=== PATIENT | male | born 1945 | race Caucasian/White ===

== ENCOUNTER 2017-02-06 09:48 | Day surgery (SDC) | payer OTHER ==
[~2017-02-06] VITALS: Ht 175.3 cm; Wt 92.9 kg
[~2017-02-06 09:48] MED LIST: BLOOD PRESSURE MEDS; DIABETES MEDS
[2017-02-06] MEDS ORDERED: PROPOFOL 40 ML ONE (11:15)
[2017-02-06] MEDS ORDERED: PROPOFOL 20 ML ONE (12:06)
--- NOTE | 2017-02-06 12:08 | OPPN ---
Date/Time of Note Date/Time of Note DATE: 02/06/17 TIME: 12:06 Operative Report Preoperative Diagnosis Screening History of colon polyps Postoperative Diagnosis Sigmoid tumor at 50 centimeters from the anus Internal hemorrhoids Operation/Procedure Performed Colonoscopy and biopsy Tattooing of the tumor site with Ayla ink Provider: EARLINE VALENZUELA MD Anesthesia Type: MAC Estimated blood loss: none Transfusion Required: no Specimens Biopsy sigmoid tumor Grafts/Implants: none Complications: no EARLINE VALENZUELA MD Feb 06, 2017 12:08
[2017-02-06 12:20] VITALS: BP 144/70; RESP 14
--- NOTE | 2017-02-06 13:33 | GILP ---
DATE OF PROCEDURE: 02/06/2017 SURGEON: Drake Eugene MD. PROCEDURE PERFORMED: Colonoscopy and biopsy. PREOPERATIVE DIAGNOSES: 1. Screening colonoscopy. 2. History of colon polyps. POSTOPERATIVE DIAGNOSES: 1. Colonoscopy all the way to the cecum. 2. Poor prep, making the exam somewhat suboptimal. 3. Sigmoid mass at 50 cm from the anus, and biopsies were taken for histopathology. 4. The area was tattooed with Ayla ink. 5. Internal hemorrhoids. INDICATION: Mr. Fredy Angel is a 71-year-old male patient who had a history of colon polyps. The patient was scheduled for screening colonoscopy. The procedure and possible complications were well explained to the patient and the family and consent was obtained. DESCRIPTION OF PROCEDURE: Under influence of anesthesia, the colonoscope was carefully introduced in the rectum. Under direct vision, it was advanced all the way to the cecum. Findings, the patient had a sigmoid tumor at 50 cm from the anus, and multiple biopsies were taken for histopathology. The area was tattooed with Ayla ink. The patient was noted to have internal hemorrhoids. He tolerated the procedure very well. There was no complication from the procedure. At the end of procedure, he was awake with stable vital signs and he was discharged home in the care of his family. IMPRESSION: 1. Colonoscopy all the way to the cecum. 2. Poor prep, making the exam somewhat suboptimal. 3. Sigmoid tumor at 50 cm from the anus, and biopsies were taken for histopathology. 4. The area was tattooed with Ayla ink. 5. Internal hemorrhoids. PLAN: Await histopathology report. The patient will need surgical evaluation. Dictated By: MD TANNER Medley/pastor/lyndsay /Document#: [id number]
== END 2017-02-06 12:47 | disposition home or self-care (01) ==
LOC: GIL 09:48
PROVIDERS: ATTEND Internal Medicine Gastroenterology
DX: Z12.11 Encounter for screening for malignant neoplasm of colon (principal); C18.7 Malignant neoplasm of sigmoid colon; K64.8 Other hemorrhoids; E78.5 Hyperlipidemia, unspecified; E11.9 Type 2 diabetes mellitus without complications
CPT/HCPCS: 82962; 88305

== ENCOUNTER 2017-03-30 08:52 | Inpatient (IN) | payer OTHER ==
[2017-03-30] VITALS (20 sets, daily range): BP systolic 126–185; BP diastolic 60–87; PULSE 66–97; RESP 10–20; Ht 175.3 cm; Wt 94.4 kg
[~2017-03-30] VITALS: Ht 175.3 cm; Wt 94.4 kg
[~2017-03-30 08:52] MED LIST changes: +CEFAZOLIN 1 GM INJ ONE; +METOPROLOL 5 MG INJ ONE; +ROCURONIUM 50 MG INJ ONE; +metroNIDAZOLE 500 MG/100 ML NS IVPB ONE
[2017-03-30] MEDS ORDERED: AMPICILLIN/SULB 3 GM/NS (PMX) 100 ML IVPB ONE (09:30)
[2017-03-30] MEDS ORDERED: SOD CHLORIDE 0.9% 1,000 ML IV ONE (09:30)
[2017-03-30] MEDS ORDERED: ZOC10 PO (10:37)
[2017-03-30] MEDS ORDERED: LISI10TA2 PO (10:37)
[2017-03-30] MEDS ORDERED: INSU100I33 SC (10:37)
[2017-03-30] MEDS ORDERED: METF1000 PO (10:37)
[2017-03-30] MEDS ORDERED: ASPI-664 PO (10:37)
[2017-03-30] MEDS ORDERED: DOXA4TAB3 PO (10:37)
[2017-03-30] MEDS ORDERED: [UNRECOGNIZED DRUG - CODE] TP (10:37)
[2017-03-30] MEDS ORDERED: EXEN2PEN SQ (10:37)
[2017-03-30] MEDS ORDERED: morphine SULFATE/PF (10 MG/10 ML) INJ ONE (11:54)
[2017-03-30] MEDS ORDERED: MIDAZOLAM 1 MG/ML 2 ML INJ ONE (11:54)
[2017-03-30] MEDS ORDERED: PROPOFOL 20 ML ONE (15:06)
[2017-03-30] MEDS ORDERED: ONDANSETRON 4 MG INJ ONE (15:06)
[2017-03-30] MEDS ORDERED: LIDOCAINE 2% (SDV) 5 ML INJ ONE (15:06)
[2017-03-30] MEDS ORDERED: GLYCOPYRROLATE 0.4 MG INJ ONE (15:06)
[2017-03-30] MEDS ORDERED: ROCURONIUM 50 MG INJ ONE (15:06)
[2017-03-30] MEDS ORDERED: NEOSTIGMINE 3 MG/3 ML SYRINGE ONE (15:06)
--- NOTE | 2017-03-30 15:22 | SIPON ---
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
[2017-03-30] MEDS ORDERED: ONDANSETRON 4 MG INJ IV PRN ×2 (15:30→16:00)
[2017-03-30] MEDS ORDERED: ACETAMINOPHEN 1000MG/100ML IV 100 ML IVPB PRN (15:30)
[2017-03-30] MEDS: hydrALAzine 20 MG INJ IV PRN ×2 (15:48→15:57)
[2017-03-30] MEDS ORDERED: MEPERIDINE 25 MG INJ IV PRN (16:00)
[2017-03-30] MEDS ORDERED: NALOXONE (0.4 MG/ML) INJ IV PRN (16:00)
[2017-03-30] MEDS ORDERED: DIPHENHYDRAMINE 50 MG INJ IV PRN (16:00)
[2017-03-30] MEDS ORDERED: HYDROmorphONE (0.2 MG/ML) 10ML SYG IV PRN ×2 (16:00)
[2017-03-30] MEDS ORDERED: LABETALOL HCL 20MG INJ IV PRN (16:00)
[2017-03-30] MEDS ORDERED: FENTAnyl 50 MCG/ML VIAL IV PRN ×2 (16:00)
[2017-03-30 16:17] LABS: ADD UMIC YES; UR ASCORBIC ACID NEGATIVE (NEGATIVE); UR BACTERIA FEW /HPF (NONE SEEN); UR BILIRUBIN (Dip) NEGATIVE (NEGATIVE); UR BLOOD (Dip) 2+ mg/dL (NEGATIVE); UR CLARITY CLEAR (CLEAR); UR COLOR YELLOW (YELLOW); UR GLUCOSE (Dip) NEGATIVE (NEGATIVE); UR KETONES (Dip) TRACE mg/dL (NEGATIVE); UR LEUKOCYTE ESTERASE (Dip) NEGATIVE Leu/ul (NEGATIVE); UR MUCUS FEW /HPF (NONE SEEN); UR NITRITE (Dip) NEGATIVE (NEGATIVE); UR RBC 44 /HPF (0-5); UR SPECIFIC GRAVITY (Dip) 1.018 (1.003-1.030); UR TOTAL PROTEIN (Dip) NEGATIVE (NEGATIVE); UR UROBILINOGEN (Dip) NEGATIVE (NEGATIVE)
[2017-03-30] MEDS: morphine 1 MG/ML 30 ML (PCA) IV SCH ×2 (16:26→23:22)
[2017-03-30] MEDS ORDERED: hydrALAzine 20 MG INJ IV PRN (16:30)
[2017-03-30] MEDS: D5W-0.45 NACL + KCL 20 MEQ 1,000 ML IV SCH (23:22)
[2017-03-30] MEDS ORDERED: GLUCOSE GEL 15 GRAM TUBE BUCCAL PRN (23:30)
[2017-03-30] MEDS ORDERED: GLUCAGON 1 MG INJ IM PRN (23:30)
[2017-03-30] MEDS ORDERED: GLUCOSE GEL 15 GRAM TUBE PO PRN ×2 (23:30)
[2017-03-30] MEDS ORDERED: DEXTROSE 50% 50 ML SYRINGE IV PRN ×2 (23:30)
[2017-03-31] VITALS (7 sets, daily range): BP systolic 126–169; BP diastolic 60–78; PULSE 89; RESP 16–20
--- NOTE | 2017-03-31 01:27 | OPR ---
DATE OF OPERATION: 03/30/2017 PREOPERATIVE DIAGNOSIS: Left colon cancer at approximately 50 cm. POSTOPERATIVE DIAGNOSIS: Left colon cancer at splenic flexure. PROCEDURES: Exploratory laparotomy, lysis of adhesions, mobilization of left colon with full mobili zation of splenic flexure, left transverse and proximal descending colectomy, and repair of ventral hernia, partial omentectomy. ANESTHESIA: General. ANESTHESIOLOGIST: Dr. Freire SURGEON: Dr. Santos. PARK ACTIVITIES COORDINATOR: Dr. Ghassan Ashton. INDICATIONS FOR PROCEDURE: The patient is a 71-year-old male who underwent colonoscopy and was foun d to have a large tumor at approximately 50 cm. He underwent surgical consultation. He was career placement services counselor ed as to the risks versus benefits of surgical resection. He consented. Of note, he also had an up per midline ventral hernia and requested repair of the hernia. He consented for that procedure as chirag link. DESCRIPTION OF PROCEDURE: The patient was brought to the operating theater, placed under general en dotracheal tube anesthesia. The patient was then placed in the lithotomy position. The abdomen was then shaved, prepped and draped in usual sterile fashion. A midline incision was made from a point approximately 7 to 8 cm above the umbilicus down around the umbilicus to a point approximately 5 cm below. Subcutaneous tissue was dissected with cautery down to the anterior rectus sheath. The rogelio ea alba was then incised and the abdomen was entered without difficulty. The Bookwalter retractor w as then placed. Moderate adhesions were taken down with combination of cautery and sharp dissection . The left colon was then mobilized. Upon mobilizing the left colon, it became evident that the ta ttoo beltran indicating the location of the tumor was at the splenic flexure; therefore, meticulous dis section took place to mobilize the splenic flexure. At this point, a portion of the omentum had to be resected. Full mobilization of the mid transverse colon to the descending colon then took place with the splenic flexure fully mobilized. A suitable point for transection proximal to the tumor wa s identified. It was cleared of its mesentery and transected with a WEI stapler. The mesentery was then sequentially transected using the LigaSure device. When a suitable point below the tumor was reached, the bowel was cleared of its mesentery and again transected with a WEI stapler. A small am ount of remaining mesentery was then transected with a WEI stapler. Specimen was removed, oriented and sent for intraoperative gross analysis for margins. That was performed by attending pathologist , Dr. Juan David Gillis. Margins were widely clear. At this point, preparations for anastomosis were made. The mid transverse colon was brought in close approximation with the proximal portion of the sigmoid colon and 3-0 silk sutures were used to approximate the 2 portions of bowel and dual coloto mies were performed and anastomosis was created with a WEI stapler. The staple line was inspected. There was minimal bleeding controlled with cautery. The anastomosis was then completed with a TA s tapler in standard fashion. At this point, the abdomen was irrigated. There was no evidence of lauren oing bleeding. Preparations for closure were made. Lap, sponge and instrument counts were correct. The abdomen was then closed with #1 looped PDS sutures in running fashion and the skin was reappro ximated with skin sveta. The patient tolerated the procedure well. The estimated blood loss was approximately 200 mL. There were no complications and the patient was transported in stable conditi on to the recovery room. Dictated By: FARIBA MCCOY/ASHLEY Conf#: [id number] DID#: [id number]
[2017-03-31] MEDS: ACCU-CHEK XX SCH (02:00)
[2017-03-31] MEDS: D5W-0.45 NACL + KCL 20 MEQ 1,000 ML IV SCH ×6 (03:28→22:27)
--- NOTE | 2017-03-31 05:33 | HP ---
DATE OF ADMISSION: 03/30/2017 HISTORY OF PRESENT ILLNESS: History was obtained from medical record as the patient was lethargic due to morphine JACKER FEEDER. The collin ent was, however, arousable. The patient is a 71-year-old gentleman who underwent colonoscopy back in January 2017, which revealed sigmoid mass at 50 cm from the anus. Biopsy came back positive fo r adenocarcinoma well to moderately differentiated. The patient was referred to Dr. Santos and samme alicently brought into the hospital today. The patient underwent exploratory laparotomy, lysis of adh esions and mobilization of splenic flexure left colon with mobilization of the splenic flexure and p artial omentectomy, left colon resection and ventral hernia repair. The patient postoperatively was found to be sleepy due to continuing the JACKER FEEDER, which will be subsequently switched to intervention P CI. The patient was arousable. Denies any chest pain. No resting leg pain. No focal weakness. REVIEW OF SYSTEMS: Rather limited as the patient was lethargic. PAST MEDICAL HISTORY: As stated above. In addition, the patient also has history of hypertension and diabetes. The patie nt also has history of hypertension, diabetes, and benign prostatic hypertrophy. PAST SURGICAL HISTORY: None. FAMILY HISTORY: Noncontributory. SOCIAL HISTORY: No smoking, no alcohol. ALLERGIES: NONE. PHYSICAL EXAMINATION: GENERAL: The patient is conscious, awake, alert. VITAL SIGNS: Temperature 98, pulse 68, respirations 13, blood pressure 147/73, O2 sat 99%. HEENT: Conjunctivae and lids normal. Oropharynx clear. NECK: No mass. LUNGS: Clear to auscultation. CARDIOVASCULAR: S1, S2 normal. No murmur. ABDOMEN: The patient is status post surgery. EXTREMITIES: No leg edema. Pedal pulses palpable. SKIN: Without rash. NEUROLOGIC: The patient is lethargic but arousable and attempts to follow simple commands. LABORATORY DATA: Glucose 96. Last hemoglobin A1c 6.2. LDL 73. Chest x-ray unremarkable. EKG normal sinus rhythm with no acute ST or T changes. Rest of the preop labs were not available. IMPRESSION: 1. Sigmoid colon cancer, status post surgery and ventral hernia repair. 2. Hypertension. 3. Diabetes mellitus. 4. Dyslipidemia. PLAN: The patient is admitted on medical floor. Patient will be kept n.p.o., and will be given IV fluid. We will put him on sliding scale insulin. Will continue SCD for DVT prophylaxis. For pain control , the patient will be given morphine intermittent JACKER FEEDER and will add hydralazine on p.r.n. basis for h ypertension and for now, only on sliding scale for diabetes. Dictated By: CHARO CHINCHILLA/ASHLEY Conf#: [id number] DID#: [id number]
[2017-03-31 06:14] LABS: BASOPHILS % 0.1 % (0.0-2.0); HEMOGLOBIN 9.8 g/dl (14.0-18.0); LYMPHOCYTES % 10.8 % (15.0-51.0); MEAN CORPUSCULAR HEMOGLOBIN 28.6 pg (29.0-33.0); MEAN CORPUSCULAR HGB CONC 30.6 g/dl (32.0-37.0); MEAN CORPUSCULAR VOLUME 93.3 fl (82.0-101.0); MEAN PLATELET VOLUME 10.2 fl (7.4-10.4); MONOCYTE # 0.9 10^3/ul (0.3-0.9); MONOCYTES % 9.9 % (0.0-11.0); NEUTROPHIL # 7.3 10^3/ul (1.6-7.5); NEUTROPHILS % 78.9 % (39.0-77.0); PLATELET COUNT 255 10^3/UL (140-415); RED BLOOD COUNT 3.43 10^6/ul (4.70-6.10); RED CELL DISTRIBUTION WIDTH 14.6 % (11.5-14.5); WHITE BLOOD COUNT 9.3 10^3/ul (4.8-10.8)
[2017-03-31] MEDS: PANTOPRAZOLE 40 MG INJ IV SCH (06:16)
[2017-03-31 06:32] LABS: INR 1.12; PROTIME 14.4 Sec (12.2-14.2); PT RATIO 1.1
[2017-03-31 06:33] LABS: PARTIAL THROMBOPLASTIN TIME 28.2 Sec (25.0-35.0)
[2017-03-31 06:41] LABS: CALCIUM 7.8 mg/dl (8.4-10.2); CREATININE 0.93 mg/dl (0.61-1.24); MAGNESIUM 1.7 mg/dl (1.7-2.5); PHOSPHORUS 3.7 mg/dl (2.5-4.9); POTASSIUM 4.8 mmol/L (3.5-5.1)
[2017-03-31 06:42] LABS: ALBUMIN/GLOBULIN RATIO 0.88; BILIRUBIN,INDIRECT 0.6 mg/dl (0-1.1); BILIRUBIN,TOTAL 0.6 mg/dl (0.2-1.3); CALCIUM 7.9 mg/dl (8.4-10.2); CREATININE 0.96 mg/dl (0.61-1.24); POTASSIUM 4.8 mmol/L (3.5-5.1); TOTAL PROTEIN 6.4 g/dl (6.1-8.1)
--- NOTE | 2017-03-31 08:09 | PN ---
Date/Time of Note Date/Time of Note DATE: 03/31/17 TIME: 08:09 Assessment/Plan VTE Prophylaxis VTE Prophylaxis Intervention: SCD's Lines/Catheters IV Catheter Type (from Nrsg): Peripheral IV Urinary Cath still in place: Yes Reason Cath still needed: urinary retention Assessment/Plan Chief Complaint/Hosp Course Patient pain is well controlled with a FASHION DIRECTOR morphine. Patient has elevated blood sugar, currently n.p.o., on IV fluids with dextrose. Will obtain hemoglobin A1c, will start Lantus and continue to monitor blood sugar with NovoLog coverage per sliding scale. Problems: Assessment/Plan - Sigmoid colon cancer, status post surgery and ventral hernia repair. Continue FASHION DIRECTOR morphine for pain and Zofran as needed for nausea. Continue IV fluids. Follow up surgical recommendation. - Hypertension. Continue hydralazine as needed for systolic blood pressure above 170. - Diabetes mellitus. Continue Lantus and NovoLog per mild algorithm sliding scale. - Dyslipidemia. Further recommendations based on clinical course. Plan of care is discussed with Dr. Gu Exam/Review of Systems Vital Signs Vitals Vital Signs Date Time Temp Pulse Resp B/P Pulse Ox O2 Delivery O2 Flow Rate FiO2 03/31/17 07:55 97.6 78 18 141/65 91 03/31/17 04:00 Nasal Cannula 03/31/17 01:13 2.0 Intake and Output 03/30/17 03/30/17 03/31/17 15:00 23:00 07:00 Intake Total 1600 ml 1200 ml Output Total 280 ml 650 ml Balance 1320 ml 550 ml Exam Constitutional: alert, oriented Head: normocephalic Neck: supple Respiratory: normal air movement Cardiovascular: nl pulses Gastrointestinal: other, soft Extremities: normal pulses (Status post surgery) Neurological: nl mental status Results Result Diagram: 03/31/17 0527 03/31/17 0529 Results 24 hrs Laboratory Tests Test 03/30/17 10:07 03/30/17 13:30 03/31/17 03:12 03/31/17 05:27 Bedside Glucose 96 208 Urine Color YELLOW Urine Clarity CLEAR Urine pH 5.0 Urine Specific Steele 1.018 Urine Ketones TRACE A Urine Nitrite NEGATIVE Urine Bilirubin NEGATIVE Urine Urobilinogen NEGATIVE Urine Leukocyte Esterase NEGATIVE Urine Microscopic RBC 44 H Urine Microscopic WBC 4 Urine Bacteria FEW A Urine Mucus FEW A Urine Hemoglobin 2+ H Urine Glucose NEGATIVE Urine Total Protein NEGATIVE White Blood Count 9.3 Red Blood Count 3.43 L Hemoglobin 9.8 L Hematocrit 32.0 L Mean Corpuscular Volume 93.3 Mean Corpuscular Hemoglobin 28.6 L Mean Corpuscular Hemoglobin Concent 30.6 L Red Cell Distribution Width 14.6 H Platelet Count 255 Mean Platelet Volume 10.2 Neutrophils % 78.9 H Lymphocytes % 10.8 L Monocytes % 9.9 Eosinophils % 0.0 Basophils % 0.1 Nucleated Red Blood Cells % 0.0 Neutrophils # 7.3 Lymphocytes # 1.0 Monocytes # 0.9 Eosinophils # 0.0 Basophils # 0.0 Nucleated Red Blood Cells # 0.0 Test 03/31/17 05:29 03/31/17 07:58 Prothrombin Time 14.4 H Prothrombin Time Ratio 1.1 INR International Normalized Ratio 1.12 Activated Partial Thromboplast Time 28.2 Sodium Level 138 Potassium Level 4.8 Chloride Level 103 Carbon Dioxide Level 29 Anion Gap 11 Blood Urea Nitrogen 11 Creatinine 0.96 Glucose Level 217 Calcium Level 7.9 L Phosphorus Level 3.7 Magnesium Level 1.7 Total Bilirubin 0.6 Direct Bilirubin 0.00 Indirect Bilirubin 0.6 Aspartate Amino Transf (AST/SGOT) 24 Alanine Aminotransferase (ALT/SGPT) 27 Alkaline Phosphatase 56 Total Protein 6.4 Albumin 3.0 L Globulin 3.40 H Albumin/Globulin Ratio 0.88 Bedside Glucose 204 Medications Medications Current Medications Ondansetron HCl (Zofran Inj) 4 mg Q6H PRN IV NAUSEA AND/OR VOMITING; Start 03/30/17 at 15:30 Morphine Sulfate 0 CONTINUOUS RATE 2... Q4PCA IV Last administered on 23:22; Admin Dose 30 MG; Start 03/30/17 at 15:30 Potassium Chloride/Dextrose/ Sod Cl 1,000 ml @ 125 mls/hr Q8H IV Last administered on 03/31/17 03:28; Admin Dose 125 MLS/HR; Start 03/30/17 at 15:22 Acetaminophen (Ofirmev 1000mg/ 100ml Iv) 100 ml @ 400 mls/hr Q6H PRN IVPB PAIN ; Start 03/30/17 at 15:30 Naloxone HCl (Narcan) 0.2 mg Q2M PRN IV FOR RESP RATE 8 OR LESS; Start at 16:00 Pantoprazole (Protonix Iv) 40 mg DAILY@06 IV Last administered on 03/31/17 06: 16; Admin Dose 40 MG; Start 03/31/17 at 06:00 Hydralazine HCl (Apresoline) 10 mg Q4H PRN IV SBP>160, DBP>95; Start 03/30/17 at 16:30 Diagnostic Test (Pha) (Accu-Chek) 1 ea 02 XX Last administered on 03/31/17 02: 00; Admin Dose 1 EA; Start 03/31/17 at 02:00 Miscellaneous Information 1 ea NOTE XX ; Start 03/30/17 at 23:30 Glucose (Glutose) 15 gm Q15M PRN PO DECREASED GLUCOSE; Start 03/30/17 at 23:30 Glucose (Glutose) 22.5 gm Q15M PRN PO DECREASED GLUCOSE; Start 03/30/17 at 23: 30 Dextrose (D50w Syringe) 25 ml Q15M PRN IV DECREASED GLUCOSE; Start 03/30/17 at 23:30 Dextrose (D50w Syringe) 50 ml Q15M PRN IV DECREASED GLUCOSE; Start 03/30/17 at 23:30 Glucagon (Glucagen) 1 mg Q15M PRN IM DECREASED GLUCOSE; Start 03/30/17 at 23:30 Glucose (Glutose) 15 gm Q15M PRN BUCCAL DECREASED GLUCOSE; Start 03/30/17 at 23 :30 SOFIA VAZQUEZ Mar 31, 2017 08:09
[2017-03-31] MEDS: INSULIN ASPART [NOVOLOG] 3 ML PEN SC SCH ×4 (08:15→20:24)
--- NOTE | 2017-03-31 17:03 | PN ---
DATE: 03/31/2017 Postop day #1 status post exploratory laparotomy, resection of the colon, distal transverse and sple alisha flexure, and repair of ventral hernia. SUBJECTIVE: No complaints. OBJECTIVE: VITAL SIGNS: Temperature 98.3, heart rate 82, respiration 18, blood pressure 155/74, saturation 97% on 2 liters nasal cannula. LABORATORY DATA: WBC 9800, hemoglobin 9.8, hematocrit 32. Sodium, potassium, BUN, creatinine ben l. Glucose is 217. Coagulation profile normal. HEART: Regular. LUNGS: Clear. ABDOMEN: Protruded with fat. NG tube in place. Jesus is in place. ASSESSMENT: Postop day #1 for this 71-year-old gentleman with cancer of the splenic flexure/colon, which was operated on yesterday. Today is postop day #1. The patient is stable and encouraged to use incentive spirometry. Has walked around a little bit. We will continue to follow. Dictated By: MARLI GOMEZ/ASHLEY Conf#: [id number] DID#: [id number]
[2017-03-31] MEDS: PIPER-TAZO 3.375 GM IV (PMX) 50 ML IVPB SCH ×2 (17:36→23:09)
[2017-03-31] MEDS: INSULIN GLARGINE [LANtus] 3 ML PEN SC SCH (18:54)
[2017-03-31] MEDS: hydrALAzine 20 MG INJ IV PRN (20:18)
[2017-04-01] VITALS: BP 138/63; RESP 20
[2017-04-01] MEDS: ACCU-CHEK XX SCH (01:35)
[2017-04-01] MEDS ORDERED: ACCU-CHEK XX SCH ×2 (02:00)
[2017-04-01 04:00] VITALS: BP 159/68; RESP 20
[2017-04-01] MEDS: PANTOPRAZOLE 40 MG INJ IV SCH (05:27)
[2017-04-01] MEDS: PIPER-TAZO 3.375 GM IV (PMX) 50 ML IVPB SCH ×3 (05:28→17:30)
[2017-04-01] MEDS: D5W-0.45 NACL + KCL 20 MEQ 1,000 ML IV SCH ×3 (05:28→19:29)
[2017-04-01 06:04] LABS: BASOPHILS % 0.1 % (0.0-2.0); EOSINOPHILS % 0.3 % (0.0-7.0); HEMATOCRIT 29.6 % (42.0-52.0); HEMOGLOBIN 9.4 g/dl (14.0-18.0); LYMPHOCYTES # 1.1 10^3/ul (0.8-2.9); LYMPHOCYTES % 11.7 % (15.0-51.0); MEAN CORPUSCULAR HEMOGLOBIN 29.6 pg (29.0-33.0); MEAN CORPUSCULAR HGB CONC 31.8 g/dl (32.0-37.0); MEAN CORPUSCULAR VOLUME 93.1 fl (82.0-101.0); MEAN PLATELET VOLUME 10.6 fl (7.4-10.4); MONOCYTE # 0.8 10^3/ul (0.3-0.9); MONOCYTES % 8.5 % (0.0-11.0); NEUTROPHIL # 7.3 10^3/ul (1.6-7.5); NEUTROPHILS % 79.1 % (39.0-77.0); PLATELET COUNT 251 10^3/UL (140-415); RED BLOOD COUNT 3.18 10^6/ul (4.70-6.10); RED CELL DISTRIBUTION WIDTH 14.7 % (11.5-14.5); WHITE BLOOD COUNT 9.2 10^3/ul (4.8-10.8)
[2017-04-01] MEDS: morphine 1 MG/ML 30 ML (PCA) IV SCH (06:29)
[2017-04-01 06:32] LABS: CALCIUM 7.7 mg/dl (8.4-10.2); CREATININE 1.02 mg/dl (0.61-1.24); POTASSIUM 4.3 mmol/L (3.5-5.1)
[2017-04-01 07:18] VITALS: BP 132/61; RESP 18
[2017-04-01] MEDS ORDERED: INSULIN GLARGINE [LANtus] 3 ML PEN SC SCH (08:00)
[2017-04-01] MEDS: INSULIN GLARGINE [LANtus] 3 ML PEN SC SCH (08:07)
[2017-04-01] MEDS: INSULIN ASPART [NOVOLOG] 3 ML PEN SC SCH ×4 (08:07→21:00)
[2017-04-01 10:30] LABS: BASOPHILS % 0.1 % (0.0-2.0); EOSINOPHILS % 0.3 % (0.0-7.0); HEMATOCRIT 29.6 % (42.0-52.0); HEMOGLOBIN 9.1 g/dl (14.0-18.0); LYMPHOCYTES # 0.8 10^3/ul (0.8-2.9); LYMPHOCYTES % 9.2 % (15.0-51.0); MEAN CORPUSCULAR HEMOGLOBIN 28.3 pg (29.0-33.0); MEAN CORPUSCULAR HGB CONC 30.7 g/dl (32.0-37.0); MEAN CORPUSCULAR VOLUME 92.2 fl (82.0-101.0); MEAN PLATELET VOLUME 10.4 fl (7.4-10.4); MONOCYTE # 0.8 10^3/ul (0.3-0.9); MONOCYTES % 8.9 % (0.0-11.0); NEUTROPHIL # 7.2 10^3/ul (1.6-7.5); PLATELET COUNT 247 10^3/UL (140-415); RED BLOOD COUNT 3.21 10^6/ul (4.70-6.10); RED CELL DISTRIBUTION WIDTH 14.8 % (11.5-14.5); WHITE BLOOD COUNT 8.9 10^3/ul (4.8-10.8)
[2017-04-01 11:05] LABS: INR 1.34; PROTIME 16.7 Sec (12.2-14.2); PT RATIO 1.3
[2017-04-01 11:06] LABS: PARTIAL THROMBOPLASTIN TIME 34.4 Sec (25.0-35.0)
[2017-04-01 11:24] LABS: CALCIUM 7.7 mg/dl (8.4-10.2); CREATININE 0.97 mg/dl (0.61-1.24); MAGNESIUM 1.9 mg/dl (1.7-2.5); PHOSPHORUS 2.1 mg/dl (2.5-4.9)
--- NOTE | 2017-04-01 12:03 | PN ---
Date/Time of Note Date/Time of Note DATE: 04/01/17 TIME: 11:57 Assessment/Plan VTE Prophylaxis VTE Prophylaxis Intervention: SCD's Lines/Catheters IV Catheter Type (from Nrsg): Peripheral IV Urinary Cath still in place: Yes Reason Cath still needed: urinary retention Assessment/Plan Chief Complaint/Hosp Course Patient pain is well controlled with SUPERVISOR TRUST ACCOUNTS morphine, patient is sitting in chair, continue n.p.o. and IV fluids, blood sugar is better controlled today, will increase Lantus, I continue NovoLog per mild algorithm sliding scale was every 4 hours Accu-Chek, will replace electrolytes. Assessment/Plan - Sigmoid colon cancer, status post surgery and ventral hernia repair. Continue SUPERVISOR TRUST ACCOUNTS morphine for pain and Zofran as needed for nausea. Continue IV fluids. Follow up surgical recommendation. - Hypertension. Continue hydralazine as needed for systolic blood pressure above 170. - Diabetes mellitus with hemoglobin A1 C is 7.9, continue Lantus and NovoLog per mild algorithm sliding scale. - Dyslipidemia. Further recommendations based on clinical course. Plan of care is discussed with Dr. Gu Problems: Exam/Review of Systems Vital Signs Vitals Vital Signs Date Time Temp Pulse Resp B/P Pulse Ox O2 Delivery O2 Flow Rate FiO2 04/01/17 08:00 2.0 04/01/17 07:18 98.3 93 18 132/61 97 03/31/17 04:00 Nasal Cannula Intake and Output 03/31/17 03/31/17 04/01/17 14:59 22:59 06:59 Intake Total 800 ml 1050 ml 950 ml Output Total 1200 ml 1475 ml Balance 800 ml -150 ml -525 ml Exam Constitutional: alert, oriented Head: normocephalic Neck: supple Respiratory: normal air movement Cardiovascular: nl pulses Gastrointestinal: other, soft Extremities: normal pulses (Status post surgery) Neurological: nl mental status Results Result Diagram: 04/01/17 1005 04/01/17 1005 Results 24 hrs Laboratory Tests Test 03/31/17 12:21 03/31/17 17:33 03/31/17 18:45 03/31/17 20:17 Bedside Glucose 227 H 187 198 201 Test 04/01/17 01:34 04/01/17 05:17 04/01/17 08:01 04/01/17 10:05 Bedside Glucose 188 210 White Blood Count 9.2 8.9 Red Blood Count 3.18 L 3.21 L Hemoglobin 9.4 L 9.1 L Hematocrit 29.6 L 29.6 L Mean Corpuscular Volume 93.1 92.2 Mean Corpuscular Hemoglobin 29.6 28.3 L Mean Corpuscular Hemoglobin Concent 31.8 L 30.7 L Red Cell Distribution Width 14.7 H 14.8 H Platelet Count 251 247 Mean Platelet Volume 10.6 H 10.4 Neutrophils % 79.1 H 81.0 H Lymphocytes % 11.7 L 9.2 L Monocytes % 8.5 8.9 Eosinophils % 0.3 0.3 Basophils % 0.1 0.1 Nucleated Red Blood Cells % 0.0 0.0 Neutrophils # 7.3 7.2 Lymphocytes # 1.1 0.8 Monocytes # 0.8 0.8 Eosinophils # 0.0 0.0 Basophils # 0.0 0.0 Nucleated Red Blood Cells # 0.0 0.0 Sodium Level 141 138 Potassium Level 4.3 4.0 Chloride Level 104 103 Carbon Dioxide Level 29 28 Anion Gap 12 11 Blood Urea Nitrogen 6 L 6 L Creatinine 1.02 0.97 Glucose Level 188 186 Hemoglobin A1c 7.9 H Calcium Level 7.7 L 7.7 L Prothrombin Time 16.7 H Prothrombin Time Ratio 1.3 INR International Normalized Ratio 1.34 Activated Partial Thromboplast Time 34.4 Phosphorus Level 2.1 #L Magnesium Level 1.9 Medications Medications Current Medications Ondansetron HCl (Zofran Inj) 4 mg Q6H PRN IV NAUSEA AND/OR VOMITING; Start 03/30/17 at 15:30 Morphine Sulfate 0 CONTINUOUS RATE 2... Q4PCA IV Last administered on 06:29; Admin Dose 30 MG; Start 03/30/17 at 15:30 Potassium Chloride/Dextrose/ Sod Cl 1,000 ml @ 125 mls/hr Q8H IV Last administered on 04/01/17 05:28; Admin Dose 125 MLS/HR; Start 03/30/17 at 15:22 Acetaminophen (Ofirmev 1000mg/ 100ml Iv) 100 ml @ 400 mls/hr Q6H PRN IVPB PAIN ; Start 03/30/17 at 15:30 Naloxone HCl (Narcan) 0.2 mg Q2M PRN IV FOR RESP RATE 8 OR LESS; Start at 16:00 Pantoprazole (Protonix Iv) 40 mg DAILY@06 IV Last administered on 04/01/17 05: 27; Admin Dose 40 MG; Start 03/31/17 at 06:00 Diagnostic Test (Pha) (Accu-Chek) 1 ea 02 XX Last administered on 03/31/17 02: 00; Admin Dose 1 EA; Start 03/31/17 at 02:00 Miscellaneous Information 1 ea NOTE XX ; Start 03/30/17 at 23:30 Glucose (Glutose) 15 gm Q15M PRN PO DECREASED GLUCOSE; Start 03/30/17 at 23:30 Glucose (Glutose) 22.5 gm Q15M PRN PO DECREASED GLUCOSE; Start 03/30/17 at 23: 30 Dextrose (D50w Syringe) 25 ml Q15M PRN IV DECREASED GLUCOSE; Start 03/30/17 at 23:30 Dextrose (D50w Syringe) 50 ml Q15M PRN IV DECREASED GLUCOSE; Start 03/30/17 at 23:30 Glucagon (Glucagen) 1 mg Q15M PRN IM DECREASED GLUCOSE; Start 03/30/17 at 23:30 Glucose 15 gm 15 gm Q15M PRN BUCCAL DECREASED GLUCOSE; Start 03/30/17 at 23:30 Piperacillin Sod/ Tazobactam Sod (Zosyn 3.375gm/ 50 ml (Pmx)) 50 ml @ 100 mls/ hr Q6 IVPB Last administered on 04/01/17 05:28; Admin Dose 100 MLS/HR; Start 03/31/17 at 18:00 Hydralazine HCl (Apresoline) 10 mg Q4H PRN IV SBP>170 Last administered on 03/31 20:18; Admin Dose 10 MG; Start 03/31/17 at 18:00 Insulin Glargine (Lantus) 24 unit DAILY SC Last administered on 04/01/17 08:07 ; Admin Dose 24 UNIT; Start 03/31/17 at 17:49 SOFIA VAZQUEZ Apr 01, 2017 12:03
[2017-04-01 13:38] VITALS: BP 140/65; RESP 18
[2017-04-01] MEDS ORDERED: CALCIUM GLUCONATE 10% 1 GM in DEXTROSE 5% 100 ML IVPB SCH ×2 (14:00→19:30)
[2017-04-01] MEDS ORDERED: POTASSIUM PHOSPHATE 15 MM in SOD CHLORIDE 0.9% 250 ML IV SCH (14:00)
[2017-04-01] MEDS ORDERED: CEPASTAT LOZENGE MT PRN (16:00)
[2017-04-01 21:06] VITALS: BP 159/73; RESP 20
[2017-04-02] MEDS: PIPER-TAZO 3.375 GM IV (PMX) 50 ML IVPB SCH ×4 (00:26→17:26)
[2017-04-02 02:00] VITALS: BP 141/68; RESP 20
[2017-04-02] MEDS: ACCU-CHEK XX SCH (02:00)
[2017-04-02] MEDS: D5W-0.45 NACL + KCL 20 MEQ 1,000 ML IV SCH ×3 (02:11→19:48)
[2017-04-02 05:55] LABS: BASOPHILS % 0.3 % (0.0-2.0); EOSINOPHILS # 0.2 10^3/ul (0.0-0.5); HEMOGLOBIN 8.9 g/dl (14.0-18.0); LYMPHOCYTES # 1.3 10^3/ul (0.8-2.9); LYMPHOCYTES % 16.9 % (15.0-51.0); MEAN CORPUSCULAR HEMOGLOBIN 29.4 pg (29.0-33.0); MEAN CORPUSCULAR HGB CONC 31.8 g/dl (32.0-37.0); MEAN CORPUSCULAR VOLUME 92.4 fl (82.0-101.0); MEAN PLATELET VOLUME 10.2 fl (7.4-10.4); MONOCYTE # 0.7 10^3/ul (0.3-0.9); MONOCYTES % 9.5 % (0.0-11.0); NEUTROPHIL # 5.2 10^3/ul (1.6-7.5); PLATELET COUNT 260 10^3/UL (140-415); RED BLOOD COUNT 3.03 10^6/ul (4.70-6.10); RED CELL DISTRIBUTION WIDTH 14.8 % (11.5-14.5); WHITE BLOOD COUNT 7.4 10^3/ul (4.8-10.8)
[2017-04-02 06:07] LABS: INR 1.3; PROTIME 16.3 Sec (12.2-14.2); PT RATIO 1.3
[2017-04-02 06:08] LABS: PARTIAL THROMBOPLASTIN TIME 31.9 Sec (25.0-35.0)
[2017-04-02] MEDS: PANTOPRAZOLE 40 MG INJ IV SCH (06:28)
[2017-04-02 06:44] LABS: CALCIUM 8.1 mg/dl (8.4-10.2); CREATININE 1.09 mg/dl (0.61-1.24); PHOSPHORUS 2.4 mg/dl (2.5-4.9); POTASSIUM 4.2 mmol/L (3.5-5.1)
--- NOTE | 2017-04-02 07:12 | PN ---
DATE: 04/01/2017 This is a 71-year-old gentleman status post laparotomy left colon cancer resection, postoperative day #2. SUBJECTIVE: Complains of abdominal pain. OBJECTIVE: Awake, alert. VITAL SIGNS: Temperature 98.3, heart rate 93, respirations 18, blood pressure 132/61, saturation 97% on 2 liters nasal cannula. HEART: Regular. LUNGS: Decreased breathing sound at bases. ABDOMEN: Protruded with fat and probably some gas. NG tube is in place. I manipulated it, it is functioning now, about 100 mL drainage. Jesus in place. Urine output past 24 hours, 2575 mL. EXTREMITIES: Legs no calf tenderness. LABORATORY DATA: WBC 8900 with 81% segmented, shift to the left, hemoglobin 9.1 , hematocrit 29.6. Chemistry: Sodium, potassium normal, BUN and creatinine normal. Calcium 7.7, phosphorus 2.1, slightly low, magnesium 1.9. Blood sugar 186. ASSESSMENT: A 71-year-old gentleman, obese, status post laparotomy, mobilization of the splenic flexure and resection of the distal transverse and proximal ascending colon for cancer of the colon with primary end-to-end anastomosis. The patient so far is doing relatively fine, is stable. He is slightly weak, incentive spirometry, has been out of bed, sitting in the chair. Pain is under control. Urine output is adequate. BUN, creatinine is normal. PLAN: Encourage incentive spirometry. Encourage out of bed, walking around the floor. Continue current care. Dictated By: MARLI GOMEZ/ASHLEY Conf#: [id number] DID#: [id number] ROSAS
[2017-04-02 07:24] VITALS: BP 172/78; PULSE 77; RESP 18
[2017-04-02] MEDS: INSULIN GLARGINE [LANtus] 3 ML PEN SC SCH (08:24)
[2017-04-02] MEDS: INSULIN ASPART [NOVOLOG] 3 ML PEN SC SCH ×4 (08:26→21:00)
[2017-04-02 14:24] VITALS: BP 156/68; RESP 18
[2017-04-02 19:15] VITALS: BP 151/62; RESP 18
[2017-04-02 19:26] VITALS: BP 151/62; PULSE 68; RESP 18
--- NOTE | 2017-04-02 19:46 | PN ---
Date/Time of Note Date/Time of Note DATE: 04/02/17 TIME: 19:45 Assessment/Plan VTE Prophylaxis VTE Prophylaxis Intervention: other Lines/Catheters IV Catheter Type (from Nrsg): Saline Lock Urinary Cath still in place: Yes Assessment/Plan Assessment/Plan - Sigmoid colon cancer, status post surgery and ventral hernia repair. 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 Continue IV fluids. Follow up surgical recommendation. - Hypertension. Continue hydralazine as needed for systolic blood pressure above 170. - Diabetes mellitus with hemoglobin A1 C is 7.9, continue Lantus and NovoLog per mild algorithm sliding scale. - Dyslipidemia. Further recommendations based on clinical course. Plan of care is discussed with Dr. Gu Subjective 24 Hr Interval Summary Constitutional: requiring IVF, requiring O2 Respiratory: no complaints Cardiovascular: no complaints Gastrointestinal: pain Musculoskeletal: no complaints Skin: no complaints Exam/Review of Systems Vital Signs Vitals Vital Signs Date Time Temp Pulse Resp B/P Pulse Ox O2 Delivery O2 Flow Rate FiO2 04/02/17 19:26 98.2 68 18 151/62 98 Nasal Cannula 04/02/17 08:00 2.0 Intake and Output 04/01/17 04/01/17 04/02/17 15:00 23:00 07:00 Intake Total 100 ml 1215 ml 1100 ml Output Total 1400 ml 760 ml Balance 100 ml -185 ml 340 ml Exam Constitutional: alert, oriented, well developed Respiratory: diminished breath sounds, normal air movement Cardiovascular: nl pulses, other (s1s2) Gastrointestinal: other (ngt to suction- drainig green drainage), soft, tender Musculoskeletal: nl extremities to inspection Extremities: normal pulses Neurological: nl mental status, nl speech Results Result Diagram: 04/02/1751604/02/17516 Results 24 hrs Laboratory Tests Test 04/01/17 21:42 04/02/17 05:17 04/02/17 07:55 04/02/17 12:44 Bedside Glucose 162 175 173 White Blood Count 7.4 Red Blood Count 3.03 L Hemoglobin 8.9 L Hematocrit 28.0 L Mean Corpuscular Volume 92.4 Mean Corpuscular Hemoglobin 29.4 Mean Corpuscular Hemoglobin Concent 31.8 L Red Cell Distribution Width 14.8 H Platelet Count 260 Mean Platelet Volume 10.2 Neutrophils % 71.0 Lymphocytes % 16.9 Monocytes % 9.5 Eosinophils % 2.0 Basophils % 0.3 Nucleated Red Blood Cells % 0.0 Neutrophils # 5.2 Lymphocytes # 1.3 Monocytes # 0.7 Eosinophils # 0.2 Basophils # 0.0 Nucleated Red Blood Cells # 0.0 Prothrombin Time 16.3 H Prothrombin Time Ratio 1.3 INR International Normalized Ratio 1.30 Activated Partial Thromboplast Time 31.9 Sodium Level 140 Potassium Level 4.2 Chloride Level 106 Carbon Dioxide Level 31 Anion Gap 7 L Blood Urea Nitrogen 7 Creatinine 1.09 Glucose Level 165 Calcium Level 8.1 L Phosphorus Level 2.4 L Magnesium Level 2.0 Test 04/02/17 17:32 Bedside Glucose 150 Medications Medications Current Medications Ondansetron HCl (Zofran Inj) 4 mg Q6H PRN IV NAUSEA AND/OR VOMITING; Start 03/30/17 at 15:30 Morphine Sulfate 0 CONTINUOUS RATE 2... Q4PCA IV Last administered on 06:29; Admin Dose 30 MG; Start 03/30/17 at 15:30 Potassium Chloride/Dextrose/ Sod Cl 1,000 ml @ 100 mls/hr Q10H IV Last administered on 04/02/17 10:39; Admin Dose 100 MLS/HR; Start 03/30/17 at 15:22 Acetaminophen (Ofirmev 1000mg/ 100ml Iv) 100 ml @ 400 mls/hr Q6H PRN IVPB PAIN ; Start 03/30/17 at 15:30 Naloxone HCl (Narcan) 0.2 mg Q2M PRN IV FOR RESP RATE 8 OR LESS; Start at 16:00 Pantoprazole (Protonix Iv) 40 mg DAILY@06 IV Last administered on 04/02/17 06: 28; Admin Dose 40 MG; Start 03/31/17 at 06:00 Miscellaneous Information 1 ea NOTE XX ; Start 03/30/17 at 23:30 Glucose (Glutose) 15 gm Q15M PRN PO DECREASED GLUCOSE; Start 03/30/17 at 23:30 Glucose (Glutose) 22.5 gm Q15M PRN PO DECREASED GLUCOSE; Start 03/30/17 at 23: 30 Dextrose (D50w Syringe) 25 ml Q15M PRN IV DECREASED GLUCOSE; Start 03/30/17 at 23:30 Dextrose (D50w Syringe) 50 ml Q15M PRN IV DECREASED GLUCOSE; Start 03/30/17 at 23:30 Glucagon (Glucagen) 1 mg Q15M PRN IM DECREASED GLUCOSE; Start 03/30/17 at 23:30 Glucose 15 gm 15 gm Q15M PRN BUCCAL DECREASED GLUCOSE; Start 03/30/17 at 23:30 Piperacillin Sod/ Tazobactam Sod (Zosyn 3.375gm/ 50 ml (Pmx)) 50 ml @ 100 mls/ hr Q6 IVPB Last administered on 04/02/17 17:26; Admin Dose 100 MLS/HR; Start 03/31/17 at 18:00 Hydralazine HCl (Apresoline) 10 mg Q4H PRN IV SBP>170 Last administered on 03/31 20:18; Admin Dose 10 MG; Start 03/31/17 at 18:00 Insulin Glargine (Lantus) 28 unit DAILY SC Last administered on 04/02/17 08:24 ; Admin Dose 28 UNIT; Start 04/02/17 at 09:00 Phenol (Cepastat Lozenge) 1 lozenge Q4 PRN MT sore throat; Start 04/01/17 at 16 :00 Insulin Aspart (Novolog Insulin Pen) NOVOLOG *MILD* ALGORI... Q4 SC Last administered on 04/02/17 17:47; Admin Dose 1 UNIT; Start 04/02/17 at 09:00 MARIALUISA COBOS Apr 02, 2017 19:46
[2017-04-03] MEDS: PIPER-TAZO 3.375 GM IV (PMX) 50 ML IVPB SCH ×2 (00:58→05:59)
[2017-04-03] MEDS: INSULIN ASPART [NOVOLOG] 3 ML PEN SC SCH ×6 (01:00→21:00)
[2017-04-03 02:22] VITALS: BP 156/70; RESP 20
[2017-04-03] MEDS: D5W-0.45 NACL + KCL 20 MEQ 1,000 ML IV SCH ×2 (05:59→16:57)
[2017-04-03] MEDS: PANTOPRAZOLE 40 MG INJ IV SCH (05:59)
[2017-04-03 07:39] LABS: BASOPHILS % 0.3 % (0.0-2.0); EOSINOPHILS # 0.2 10^3/ul (0.0-0.5); EOSINOPHILS % 3.8 % (0.0-7.0); HEMATOCRIT 28.4 % (42.0-52.0); HEMOGLOBIN 8.6 g/dl (14.0-18.0); LYMPHOCYTES # 1.4 10^3/ul (0.8-2.9); LYMPHOCYTES % 23.4 % (15.0-51.0); MEAN CORPUSCULAR HEMOGLOBIN 28.1 pg (29.0-33.0); MEAN CORPUSCULAR HGB CONC 30.3 g/dl (32.0-37.0); MEAN CORPUSCULAR VOLUME 92.8 fl (82.0-101.0); MEAN PLATELET VOLUME 10.4 fl (7.4-10.4); MONOCYTE # 0.7 10^3/ul (0.3-0.9); MONOCYTES % 11.2 % (0.0-11.0); NEUTROPHIL # 3.6 10^3/ul (1.6-7.5); PLATELET COUNT 278 10^3/UL (140-415); RED BLOOD COUNT 3.06 10^6/ul (4.70-6.10); RED CELL DISTRIBUTION WIDTH 15.1 % (11.5-14.5)
[2017-04-03 07:43] VITALS: BP 145/65; RESP 18
[2017-04-03 08:05] LABS: CALCIUM 7.9 mg/dl (8.4-10.2); CREATININE 0.97 mg/dl (0.61-1.24); POTASSIUM 3.9 mmol/L (3.5-5.1)
[2017-04-03] MEDS: INSULIN GLARGINE [LANtus] 3 ML PEN SC SCH (09:12)
--- NOTE | 2017-04-03 10:39 | PN ---
DATE: 04/02/2017 Postop day #3 status post laparotomy, resection of cancer of the colon and splenic flexure and anastomosis. SUBJECTIVE: No new events overnight. OBJECTIVE GENERAL: Awake, alert and oriented x3. VITAL SIGNS: Temperature 97.6, heart rate 73, respirations 18, blood pressure 156/68, saturation 97% on 2 L nasal cannula. HEART: Regular. LUNGS: Clear. ABDOMEN: Protruded with fat. Bowel sounds 2+/4+ plus/minus flatus. EXTREMITIES: no calf tenderness. LABORATORY DATA: WBC 7400 with 71% neutrophils normal, hemoglobin 8.9 , no drop. Chemistry: Sodium, potassium normal, BUN and creatinine normal. ASSESSMENT: A 71-year-old gentleman status post laparotomy, splenic flexure tumor resection and anastomosis. Today is postop day #3. The patient is stable . No nausea, no vomiting. NG tube is in place draining about 200 mL per 24 hours. Bowel sounds are hypoactive, but I present. PLAN: Continue current care, n.p.o. NG tube, Jesus catheter is in place. Further decision will be made according to the progress of the patient's condition. Dictated By: MARLI ESCAMILLA MD PS/NTS Conf#: [id number] DID#: [id number] MTDDb
--- NOTE | 2017-04-03 14:20 | PN ---
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 Patient condition and plan of care discussed with Dr. Ashton. Plan is to to DC Jesus tomorrow. Blood sugar is well controlled Assessment/Plan - Sigmoid colon cancer, status post surgery and ventral hernia repair. 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 Continue IV fluids. Follow up surgical recommendation. - Hypertension. Continue hydralazine as needed for systolic blood pressure above 170. - Diabetes mellitus with hemoglobin A1 C is 7.9, continue Lantus and NovoLog per mild algorithm sliding scale. - Dyslipidemia. Further recommendations based on clinical course. Plan of care is discussed with Dr. Gu Problems: Exam/Review of Systems Vital Signs Vitals Vital Signs Date Time Temp Pulse Resp B/P Pulse Ox O2 Delivery O2 Flow Rate FiO2 04/03/17 08:01 3.0 04/03/17 07:43 97.7 67 18 145/65 95 04/02/17 19:26 Nasal Cannula Intake and Output 04/02/17 04/02/17 04/03/17 15:00 23:00 07:00 Intake Total 50 ml 1050 ml 2150 ml Output Total 1800 ml 1600 ml 600 ml Balance -1750 ml -550 ml 1550 ml Exam Constitutional: alert, oriented Head: normocephalic Neck: supple Respiratory: normal air movement Cardiovascular: nl pulses Gastrointestinal: other, soft Extremities: normal pulses (Status post surgery) Neurological: nl mental status Results Result Diagram: 04/03/17 0535 04/03/17 0535 Results 24 hrs Laboratory Tests Test 04/02/17 17:32 04/02/17 21:54 04/03/17 01:50 04/03/17 05:35 Bedside Glucose 150 125 141 White Blood Count 6.0 Red Blood Count 3.06 L Hemoglobin 8.6 L Hematocrit 28.4 L Mean Corpuscular Volume 92.8 Mean Corpuscular Hemoglobin 28.1 L Mean Corpuscular Hemoglobin Concent 30.3 L Red Cell Distribution Width 15.1 H Platelet Count 278 Mean Platelet Volume 10.4 Neutrophils % 61.0 Lymphocytes % 23.4 Monocytes % 11.2 H Eosinophils % 3.8 Basophils % 0.3 Nucleated Red Blood Cells % 0.0 Neutrophils # 3.6 Lymphocytes # 1.4 Monocytes # 0.7 Eosinophils # 0.2 Basophils # 0.0 Nucleated Red Blood Cells # 0.0 Sodium Level 142 Potassium Level 3.9 Chloride Level 106 Carbon Dioxide Level 30 Anion Gap 10 Blood Urea Nitrogen 9 Creatinine 0.97 Glucose Level 155 Calcium Level 7.9 L Test 04/03/17 05:53 04/03/17 07:44 04/03/17 12:24 Bedside Glucose 152 163 147 Medications Medications Current Medications Ondansetron HCl (Zofran Inj) 4 mg Q6H PRN IV NAUSEA AND/OR VOMITING; Start 03/30/17 at 15:30 Morphine Sulfate 0 CONTINUOUS RATE 2... Q4PCA IV Last administered on 06:29; Admin Dose 30 MG; Start 03/30/17 at 15:30 Potassium Chloride/Dextrose/ Sod Cl 1,000 ml @ 100 mls/hr Q10H IV Last administered on 04/03/17 05:59; Admin Dose 100 MLS/HR; Start 03/30/17 at 15:22 Acetaminophen (Ofirmev 1000mg/ 100ml Iv) 100 ml @ 400 mls/hr Q6H PRN IVPB PAIN ; Start 03/30/17 at 15:30 Naloxone HCl (Narcan) 0.2 mg Q2M PRN IV FOR RESP RATE 8 OR LESS; Start at 16:00 Pantoprazole (Protonix Iv) 40 mg DAILY@06 IV Last administered on 04/03/17 05 :59; Admin Dose 40 MG; Start 03/31/17 at 06:00 Miscellaneous Information 1 ea NOTE XX ; Start 03/30/17 at 23:30 Glucose (Glutose) 15 gm Q15M PRN PO DECREASED GLUCOSE; Start 03/30/17 at 23:30 Glucose (Glutose) 22.5 gm Q15M PRN PO DECREASED GLUCOSE; Start 03/30/17 at 23: 30 Dextrose (D50w Syringe) 25 ml Q15M PRN IV DECREASED GLUCOSE; Start 03/30/17 at 23:30 Dextrose (D50w Syringe) 50 ml Q15M PRN IV DECREASED GLUCOSE; Start 03/30/17 at 23:30 Glucagon (Glucagen) 1 mg Q15M PRN IM DECREASED GLUCOSE; Start 03/30/17 at 23:30 Glucose (Glutose) 15 gm Q15M PRN BUCCAL DECREASED GLUCOSE; Start 03/30/17 at 23 :30 Hydralazine HCl (Apresoline) 10 mg Q4H PRN IV SBP>170 Last administered on 03/31 20:18; Admin Dose 10 MG; Start 03/31/17 at 18:00 Insulin Glargine (Lantus) 28 unit DAILY SC Last administered on 04/03/17 09: 12; Admin Dose 28 UNIT; Start 04/02/17 at 09:00 Phenol (Cepastat Lozenge) 1 lozenge Q4 PRN MT sore throat; Start 04/01/17 at 16 :00 Insulin Aspart (Novolog Insulin Pen) NOVOLOG *MILD* ALGORI... Q4 SC Last administered on 04/03/17 12:32; Admin Dose 1 UNIT; Start 04/02/17 at 09:00 SOFIA VAZQUEZ Apr 03, 2017 14:20
[2017-04-03 14:45] VITALS: BP 161/74; RESP 18
--- NOTE | 2017-04-03 16:38 | PN ---
DATE: 04/03/2017 He is status post laparotomy, splenic flexure tumor resection, end-to-end anastomosis. SUBJECTIVE: No complaint. Apparently last night the patient removed his NG tube. States has passe d minimal amount of gas. No bowel movement. OBJECTIVE: GENERAL: Alert, awake, oriented x3, sitting in chair. VITAL SIGNS: Temperature 97.7, heart rate 67, respiration 18, blood pressure 145/65, saturation 95% on 3 liters nasal cannula. LABORATORY DATA: WBC 6000 with neutrophils 61%. Hemoglobin 8.6, hematocrit 28.4. Chemistry: Sodi um, potassium, BUN, creatinine within normal limits. HEART: Regular. LUNGS: Clear. ABDOMEN: Distended but soft. Bowel sounds hypoactive. LEGS: No calf tenderness. GENITOURINARY: Jesus catheter and SCDs in place. ASSESSMENT: A 71-year-old gentleman who underwent laparotomy and resection of the splenic flexure t umor and end-to-end anastomosis, postop day #4. The patient is stable yet has not had any bowel mov ement. PLAN: Keep the patient n.p.o. Keep the Jesus in place. Out of bed, walk around. Encourage incent sánchez spirometry. Dictated By: MARLI ESCAMILLA MD PS/NTS Conf#: [id number] DID#: [id number]
[2017-04-03 19:34] VITALS: BP 159/71; RESP 20
[2017-04-04] MEDS: INSULIN ASPART [NOVOLOG] 3 ML PEN SC SCH ×5 (01:00→17:13)
[2017-04-04 02:12] VITALS: BP 151/70; RESP 20
[2017-04-04] MEDS: D5W-0.45 NACL + KCL 20 MEQ 1,000 ML IV SCH ×3 (03:17→23:56)
[2017-04-04 05:43] LABS: BASOPHILS % 0.4 % (0.0-2.0); EOSINOPHILS # 0.2 10^3/ul (0.0-0.5); EOSINOPHILS % 3.8 % (0.0-7.0); HEMATOCRIT 28.7 % (42.0-52.0); HEMOGLOBIN 8.9 g/dl (14.0-18.0); LYMPHOCYTES # 1.1 10^3/ul (0.8-2.9); LYMPHOCYTES % 23.9 % (15.0-51.0); MEAN CORPUSCULAR HEMOGLOBIN 28.7 pg (29.0-33.0); MEAN CORPUSCULAR VOLUME 92.6 fl (82.0-101.0); MEAN PLATELET VOLUME 9.9 fl (7.4-10.4); MONOCYTE # 0.6 10^3/ul (0.3-0.9); MONOCYTES % 13.1 % (0.0-11.0); NEUTROPHIL # 2.7 10^3/ul (1.6-7.5); NEUTROPHILS % 58.6 % (39.0-77.0); PLATELET COUNT 305 10^3/UL (140-415); RED CELL DISTRIBUTION WIDTH 14.8 % (11.5-14.5); WHITE BLOOD COUNT 4.5 10^3/ul (4.8-10.8)
[2017-04-04] MEDS: PANTOPRAZOLE 40 MG INJ IV SCH (05:44)
[2017-04-04 06:31] LABS: CALCIUM 8.4 mg/dl (8.4-10.2); CREATININE 0.96 mg/dl (0.61-1.24); POTASSIUM 4.2 mmol/L (3.5-5.1)
[2017-04-04 07:40] VITALS: BP 161/74; RESP 16
[2017-04-04] MEDS: INSULIN GLARGINE [LANtus] 3 ML PEN SC SCH (08:24)
--- NOTE | 2017-04-04 08:27 | PN ---
Date/Time of Note Date/Time of Note DATE: 04/04/17 TIME: 08:26 Assessment/Plan VTE Prophylaxis VTE Prophylaxis Intervention: other Lines/Catheters IV Catheter Type (from Nrsg): Peripheral IV Urinary Cath still in place: Yes Reason Cath still needed: skin wounds contaminated by urine Assessment/Plan Chief Complaint/Hosp Course - Sigmoid colon cancer, status post surgery and ventral hernia repair. 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 Continue IV fluids. Follow up surgical recommendation. - Hypertension. Continue hydralazine as needed for systolic blood pressure above 170. - Diabetes mellitus with hemoglobin A1 C is 7.9, continue Lantus and NovoLog per mild algorithm sliding scale. - Dyslipidemia. Problems: Subjective 24 Hr Interval Summary Free Text/Dictation Patient complain of some abdominal pain Exam/Review of Systems Vital Signs Vitals Vital Signs Date Time Temp Pulse Resp B/P Pulse Ox O2 Delivery O2 Flow Rate FiO2 04/04/17 07:40 98.9 65 16 161/74 94 04/04/17 01:10 3.0 04/02/17 19:26 Nasal Cannula Intake and Output 04/03/17 04/03/17 04/04/17 15:00 23:00 07:00 Intake Total 1000 ml 2020 ml Output Total 900 ml 2000 ml Balance 100 ml 20 ml Exam Constitutional: well developed Head: atraumatic, normocephalic Neck: supple Respiratory: clear to auscultation Cardiovascular: regular rate and rhythm Gastrointestinal: soft, tender Extremities: normal pulses Results Result Diagram: 04/04/17 0520 04/04/17 0520 Results 24 hrs Laboratory Tests Test 04/03/17 12:24 04/03/17 16:53 04/03/17 21:09 04/04/17 02:16 Bedside Glucose 147 136 132 104 Test 04/04/17 05:20 04/04/17 05:43 04/04/17 05:51 04/04/17 08:18 White Blood Count 4.5 #L Red Blood Count 3.10 L Hemoglobin 8.9 L Hematocrit 28.7 L Mean Corpuscular Volume 92.6 Mean Corpuscular Hemoglobin 28.7 L Mean Corpuscular Hemoglobin Concent 31.0 L Red Cell Distribution Width 14.8 H Platelet Count 305 Mean Platelet Volume 9.9 Neutrophils % 58.6 Lymphocytes % 23.9 Monocytes % 13.1 H Eosinophils % 3.8 Basophils % 0.4 Nucleated Red Blood Cells % 0.0 Neutrophils # 2.7 Lymphocytes # 1.1 Monocytes # 0.6 Eosinophils # 0.2 Basophils # 0.0 Nucleated Red Blood Cells # 0.0 Sodium Level 141 Potassium Level 4.2 Chloride Level 108 Carbon Dioxide Level 29 Anion Gap 8 Blood Urea Nitrogen 8 Creatinine 0.96 Glucose Level 137 Calcium Level 8.4 Bedside Glucose 130 132 Lab Scanned Report REFERENCE LAB Medications Medications Current Medications Ondansetron HCl (Zofran Inj) 4 mg Q6H PRN IV NAUSEA AND/OR VOMITING; Start 03/30/17 at 15:30 Morphine Sulfate 0 CONTINUOUS RATE 2... Q4PCA IV Last administered on 06:29; Admin Dose 30 MG; Start 03/30/17 at 15:30 Potassium Chloride/Dextrose/ Sod Cl 1,000 ml @ 100 mls/hr Q10H IV Last administered on 04/04/17 03:17; Admin Dose 100 MLS/HR; Start 03/30/17 at 15:22 Acetaminophen (Ofirmev 1000mg/ 100ml Iv) 100 ml @ 400 mls/hr Q6H PRN IVPB PAIN ; Start 03/30/17 at 15:30 Naloxone HCl (Narcan) 0.2 mg Q2M PRN IV FOR RESP RATE 8 OR LESS; Start at 16:00 Pantoprazole (Protonix Iv) 40 mg DAILY@06 IV Last administered on 04/04/17 05 :44; Admin Dose 40 MG; Start 03/31/17 at 06:00 Miscellaneous Information 1 ea NOTE XX ; Start 03/30/17 at 23:30 Glucose (Glutose) 15 gm Q15M PRN PO DECREASED GLUCOSE; Start 03/30/17 at 23:30 Glucose (Glutose) 22.5 gm Q15M PRN PO DECREASED GLUCOSE; Start 03/30/17 at 23: 30 Dextrose (D50w Syringe) 25 ml Q15M PRN IV DECREASED GLUCOSE; Start 03/30/17 at 23:30 Dextrose (D50w Syringe) 50 ml Q15M PRN IV DECREASED GLUCOSE; Start 03/30/17 at 23:30 Glucagon (Glucagen) 1 mg Q15M PRN IM DECREASED GLUCOSE; Start 03/30/17 at 23:30 Glucose (Glutose) 15 gm Q15M PRN BUCCAL DECREASED GLUCOSE; Start 03/30/17 at 23 :30 Hydralazine HCl (Apresoline) 10 mg Q4H PRN IV SBP>170 Last administered on 03/31 20:18; Admin Dose 10 MG; Start 03/31/17 at 18:00 Insulin Glargine (Lantus) 28 unit DAILY SC Last administered on 04/04/17 08: 24; Admin Dose 28 UNIT; Start 04/02/17 at 09:00 Phenol (Cepastat Lozenge) 1 lozenge Q4 PRN MT sore throat; Start 04/01/17 at 16 :00 Insulin Aspart (Novolog Insulin Pen) NOVOLOG *MILD* ALGORI... Q4 SC Last administered on 04/03/17 12:32; Admin Dose 1 UNIT; Start 04/02/17 at 09:00 REJI WHEELER Apr 04, 2017 08:27
[2017-04-04] MEDS ORDERED: morphine 4 MG/ML VIAL IV PRN (13:30)
[2017-04-04 14:00] VITALS: BP 151/67; RESP 18
--- NOTE | 2017-04-04 14:10 | PN ---
DATE: 04/04/2017 FOLLOWUP PROGRESS NOTE CHIEF COMPLAINT: Status post laparotomy, resection of cancer of the splenic flexure, postoperative day #5. SUBJECTIVE: No new complaints. The patient stated has had bowel movement, no nausea, no vomiting. OBJECTIVE GENERAL: Awake, alert, oriented x3, walking in his room. VITAL SIGNS: Temperature today 98.9, heart rate 65, respirations 16, blood pressure 165/74, saturat ion 94% on 3 liters nasal cannula. LABORATORY DATA: WBC 4500 with 58% neutrophils, normal, hemoglobin 8.9, hematocrit 28.7, stable. C hemistry: Sodium, potassium, BUN, creatinine normal. HEART: Regular. LUNGS: Clear. ABDOMEN: Soft, bowel sounds present. ASSESSMENT: A 71-year-old male status post laparotomy, splenic flexure mobilization and resection o f cancer of the splenic flexure and end-to-end anastomosis. Today is postop day #5. Patient has st arted having bowel movement and also, of course, also is passing gas. Vital signs are stable. Hemo globin is stable. WBC is stable. PLAN: 1. Send urine culture and discontinue the Jesus catheter. 2. Start patient on clear liquids. Dictated By: MARLI ESCAMILLA MD PS/NTS Conf#: [id number] DID#: [id number] CC: FARIBA BUCHANAN MD;*EndCC*
[2017-04-04 20:00] VITALS: BP 167/75; RESP 20
[2017-04-05] VITALS (9 sets, daily range): BP systolic 152–182; BP diastolic 64–86; PULSE 61–88; RESP 18–20
[2017-04-05 06:33] LABS: CALCIUM 8.4 mg/dl (8.4-10.2); CREATININE 0.98 mg/dl (0.61-1.24); POTASSIUM 4.1 mmol/L (3.5-5.1)
[2017-04-05] MEDS: INSULIN ASPART [NOVOLOG] 3 ML PEN SC SCH ×3 (07:55→17:06)
[2017-04-05] MEDS: FAMOTIDINE 20 MG INJ IV SCH ×2 (07:58→20:29)
[2017-04-05] MEDS: INSULIN GLARGINE [LANtus] 3 ML PEN SC SCH (08:12)
--- NOTE | 2017-04-05 09:29 | PN ---
Date/Time of Note Date/Time of Note DATE: 04/05/17 TIME: 09:28 Assessment/Plan VTE Prophylaxis VTE Prophylaxis Intervention: other Lines/Catheters IV Catheter Type (from Nrsg): Peripheral IV Urinary Cath still in place: Yes Reason Cath still needed: skin wounds contaminated by urine Assessment/Plan Chief Complaint/Hosp Course - Sigmoid colon cancer, status post surgery and ventral hernia repair. 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 Continue IV fluids. Follow up surgical recommendation. - Hypertension. Continue hydralazine as needed for systolic blood pressure above 170. - Diabetes mellitus with hemoglobin A1 C is 7.9, continue Lantus and NovoLog per mild algorithm sliding scale. - Dyslipidemia. Problems: Subjective 24 Hr Interval Summary Free Text/Dictation Patient has mild abdominal pain Exam/Review of Systems Vital Signs Vitals Vital Signs Date Time Temp Pulse Resp B/P Pulse Ox O2 Delivery O2 Flow Rate FiO2 04/05/17 07:35 97.9 61 20 161/86 95 04/05/17 01:01 3.0 04/02/17 19:26 Nasal Cannula Intake and Output 04/04/17 04/04/17 04/05/17 15:00 23:00 07:00 Intake Total 700 ml 1360 ml 1900 ml Output Total 900 ml Balance 700 ml 460 ml 1900 ml Exam Constitutional: well developed Head: atraumatic, normocephalic Neck: supple Respiratory: clear to auscultation Cardiovascular: regular rate and rhythm Gastrointestinal: soft, tender Extremities: normal pulses Results Result Diagram: 04/04/17 0520 04/05/17 0516 Results 24 hrs Laboratory Tests Test 04/04/17 12:28 04/04/17 17:08 04/05/17 05:16 04/05/17 07:55 Bedside Glucose 144 149 116 Sodium Level 143 Potassium Level 4.1 Chloride Level 107 Carbon Dioxide Level 28 Anion Gap 12 Blood Urea Nitrogen 6 L Creatinine 0.98 Glucose Level 110 Calcium Level 8.4 Medications Medications Current Medications Ondansetron HCl 4 mg 4 mg Q6H PRN IV NAUSEA AND/OR VOMITING; Start 03/30/17 at 15:30 Potassium Chloride/Dextrose/ Sod Cl 1,000 ml @ 100 mls/hr Q10H IV Last administered on 04/04/17t 23:56; Admin Dose 100 MLS/HR; Start 03/30/17 at 15:22 Acetaminophen (Ofirmev 1000mg/ 100ml Iv) 100 ml @ 400 mls/hr Q6H PRN IVPB PAIN ; Start 03/30/17 at 15:30 Naloxone HCl (Narcan) 0.2 mg Q2M PRN IV FOR RESP RATE 8 OR LESS; Start at 16:00 Miscellaneous Information 1 ea NOTE XX ; Start 03/30/17 at 23:30 Glucose (Glutose) 15 gm Q15M PRN PO DECREASED GLUCOSE; Start 03/30/17 at 23:30 Glucose (Glutose) 22.5 gm Q15M PRN PO DECREASED GLUCOSE; Start 03/30/17 at 23: 30 Dextrose (D50w Syringe) 25 ml Q15M PRN IV DECREASED GLUCOSE; Start 03/30/17 at 23:30 Dextrose (D50w Syringe) 50 ml Q15M PRN IV DECREASED GLUCOSE; Start 03/30/17 at 23:30 Glucagon (Glucagen) 1 mg Q15M PRN IM DECREASED GLUCOSE; Start 03/30/17 at 23:30 Glucose (Glutose) 15 gm Q15M PRN BUCCAL DECREASED GLUCOSE; Start 03/30/17 at 23 :30 Hydralazine HCl (Apresoline) 10 mg Q4H PRN IV SBP>170 Last administered on 03/31 20:18; Admin Dose 10 MG; Start 03/31/17 at 18:00 Insulin Glargine (Lantus) 28 unit DAILY SC Last administered on 04/05/17 08: 12; Admin Dose 28 UNIT; Start 04/02/17 at 09:00 Phenol (Cepastat Lozenge) 1 lozenge Q4 PRN MT sore throat; Start 04/01/17 at 16 :00 Morphine Sulfate (morphine) 3 mg Q3H PRN IV PAIN; Start 04/04/17 at 13:30 Famotidine (Pepcid Iv) 20 mg Q12 IV Last administered on 04/05/17 07:58; Admin Dose 20 MG; Start 04/05/17 at 09:00 REJI WHEELER Apr 05, 2017 09:29
[2017-04-05] MEDS: D5W-0.45 NACL + KCL 20 MEQ 1,000 ML IV SCH ×2 (10:48→18:11)
--- NOTE | 2017-04-05 13:05 | PN ---
DATE: 04/05/2017 Status post laparotomy, resection of splenic flexure, cancer of the colon and anastomosis. SUBJECTIVE: No complaint. She has tolerated liquid diet, passing gas and has had a bowel movement. No vomiting. OBJECTIVE GENERAL: Awake, alert, oriented x3, sitting in the chair. VITAL SIGNS: Temperature 97.9, heart rate 61, respirations 20, blood pressure 161/86, saturation 95 % room air. LABORATORY DATA: Sodium, potassium normal. BUN and creatinine normal. PHYSICAL EXAMINATION: HEART: Regular. LUNGS: Clear. ABDOMEN: Soft. No calf tenderness. ASSESSMENT: A 71-year-old gentleman status post laparotomy, splenic flexure mobilization and spleni c flexure colon resection for cancer, postop day #6. The patient is doing fine. He has tolerated c lear liquid and has had bowel movements. No fever. Leukocyte count is normal. The patient overall is stable, walks with a walker. PLAN: increase the diet to full liquid diet today. Dictated By: MARLI ESCAMILLA MD PS/ASHLEY Conf#: [id number] DID#: [id number]
[2017-04-05] MEDS: hydrALAzine 20 MG INJ IV PRN ×2 (14:11→20:30)
[2017-04-05] MEDS: LISINOPRIL 10 MG TAB PO SCH (20:30)
[2017-04-06] VITALS (7 sets, daily range): BP systolic 152–178; BP diastolic 68–85; PULSE 68–72; RESP 16–20
[2017-04-06] MEDS: D5W-0.45 NACL + KCL 20 MEQ 1,000 ML IV SCH (03:31)
[2017-04-06 06:14] LABS: BASOPHIL # 0.1 10^3/ul (0.0-0.1); EOSINOPHILS # 0.2 10^3/ul (0.0-0.5); EOSINOPHILS % 4.4 % (0.0-7.0); HEMATOCRIT 28.3 % (42.0-52.0); HEMOGLOBIN 8.7 g/dl (14.0-18.0); LYMPHOCYTES # 1.5 10^3/ul (0.8-2.9); MEAN CORPUSCULAR HEMOGLOBIN 27.8 pg (29.0-33.0); MEAN CORPUSCULAR HGB CONC 30.7 g/dl (32.0-37.0); MEAN CORPUSCULAR VOLUME 90.4 fl (82.0-101.0); MONOCYTE # 0.8 10^3/ul (0.3-0.9); MONOCYTES % 14.6 % (0.0-11.0); NEUTROPHIL # 2.7 10^3/ul (1.6-7.5); NEUTROPHILS % 51.6 % (39.0-77.0); PLATELET COUNT 330 10^3/UL (140-415); RED BLOOD COUNT 3.13 10^6/ul (4.70-6.10); WHITE BLOOD COUNT 5.2 10^3/ul (4.8-10.8)
[2017-04-06 06:47] LABS: CALCIUM 8.7 mg/dl (8.4-10.2); CREATININE 0.99 mg/dl (0.61-1.24)
[2017-04-06] MEDS: INSULIN ASPART [NOVOLOG] 3 ML PEN SC SCH ×3 (07:55→17:45)
[2017-04-06] MEDS: FAMOTIDINE 20 MG INJ IV SCH (07:55)
[2017-04-06] MEDS: INSULIN GLARGINE [LANtus] 3 ML PEN SC SCH (08:01)
--- NOTE | 2017-04-06 16:01 | PN ---
DATE: 04/06/2017 SUBJECTIVE: Patient is a 71-year-old gentleman who underwent left colon tumor resection and left splenic flexure mobilization about eight days ago. The patient is stable. No complaints and has been tolerating regular diet, has had bowel movements and urination is okay. OBJECTIVE: GENERAL: Alert, awake, oriented x3. VITAL SIGNS: Temperature 98, heart rate 68, respirations 18, blood pressure 154 /70, saturation 94% on room air. LABORATORY DATA: WBC today 5200 with 51% segmented, hemoglobin is stable at 8.7 to 8.3. Chemistry: BUN, creatinine and sodium potassium is within normal limits. HEART: Regular. LUNGS: Clear. ABDOMEN: Soft. PLAN: Today, the diet advanced to regular diet. If the patient tolerates that and has a bowel movement, the patient can be discharged home tomorrow. Dictated By: MARLI ESCAMILLA MD PS/NTS Conf#: [id number] DID#: [id number] CC: MARLI ESCAMILLA MD;*EndCC* MTDD
--- NOTE | 2017-04-06 16:40 | PN ---
Date/Time of Note Date/Time of Note DATE: 04/06/17 TIME: 16:34 Assessment/Plan VTE Prophylaxis VTE Prophylaxis Intervention: SCD's Lines/Catheters IV Catheter Type (from Nrs): Peripheral IV Central line still needed: Yes Urinary Cath still in place: No Assessment/Plan Chief Complaint/Hosp Course Patient tolerates full liquid diet well, pain is well controlled. If patient is able to tolerate regular diet well, anticipate discharge home tomorrow. Assessment/Plan - Sigmoid colon cancer, status post surgery and ventral hernia repair. - Hypertension. Continue lisinopril and hydralazine as needed for systolic blood pressure above 170. - Diabetes mellitus with hemoglobin A1 C is 7.9, continue Lantus and NovoLog per mild algorithm sliding scale. - Dyslipidemia. Further recommendations based on clinical course. Plan of care is discussed with Dr. Gu Problems: Exam/Review of Systems Vital Signs Vitals Vital Signs Date Time Temp Pulse Resp B/P Pulse Ox O2 Delivery O2 Flow Rate FiO2 04/06/17 14:23 98.6 67 16 158/72 98 04/06/17 07:30 Room Air 04/06/17 01:39 3.0 Intake and Output 04/05/17 04/05/17 04/06/17 15:00 23:00 07:00 Intake Total 1000 ml 1600 ml 1590 ml Output Total 550 ml Balance 1000 ml 1050 ml 1590 ml Exam Constitutional: alert, oriented Respiratory: normal air movement Cardiovascular: nl pulses Gastrointestinal: other, soft Extremities: normal pulses (Status post surgery) Neurological: nl mental status Results Result Diagram: 04/06/17 0528 04/06/1728 Results 24 hrs Laboratory Tests Test 04/05/17 17:05 04/06/17 05:28 04/06/17 07:51 04/06/17 11:28 Bedside Glucose 99 101 104 White Blood Count 5.2 Red Blood Count 3.13 L Hemoglobin 8.7 L Hematocrit 28.3 L Mean Corpuscular Volume 90.4 Mean Corpuscular Hemoglobin 27.8 L Mean Corpuscular Hemoglobin Concent 30.7 L Red Cell Distribution Width 15.0 H Platelet Count 330 Mean Platelet Volume 10.0 Neutrophils % 51.6 Lymphocytes % 28.0 Monocytes % 14.6 H Eosinophils % 4.4 Basophils % 1.0 Nucleated Red Blood Cells % 0.0 Neutrophils # 2.7 Lymphocytes # 1.5 Monocytes # 0.8 Eosinophils # 0.2 Basophils # 0.1 Nucleated Red Blood Cells # 0.0 Sodium Level 143 Potassium Level 4.0 Chloride Level 110 Carbon Dioxide Level 28 Anion Gap 9 Blood Urea Nitrogen 5 L Creatinine 0.99 Glucose Level 98 Calcium Level 8.7 Medications Medications Current Medications Ondansetron HCl 4 mg 4 mg Q6H PRN IV NAUSEA AND/OR VOMITING; Start 03/30/17 at 15:30 Potassium Chloride/Dextrose/ Sod Cl 1,000 ml @ 50 mls/hr Q20H IV Last administered on 04/06/17 03:31; Admin Dose 50 MLS/HR; Start 03/30/17 at 15:22 Acetaminophen (Ofirmev 1000mg/ 100ml Iv) 100 ml @ 400 mls/hr Q6H PRN IVPB PAIN ; Start 03/30/17 at 15:30 Miscellaneous Information 1 ea NOTE XX ; Start 03/30/17 at 23:30 Glucose (Glutose) 15 gm Q15M PRN PO DECREASED GLUCOSE; Start 03/30/17 at 23:30 Glucose (Glutose) 22.5 gm Q15M PRN PO DECREASED GLUCOSE; Start 03/30/17 at 23: 30 Dextrose (D50w Syringe) 25 ml Q15M PRN IV DECREASED GLUCOSE; Start 03/30/17 at 23:30 Dextrose (D50w Syringe) 50 ml Q15M PRN IV DECREASED GLUCOSE; Start 03/30/17 at 23:30 Glucagon (Glucagen) 1 mg Q15M PRN IM DECREASED GLUCOSE; Start 03/30/17 at 23:30 Glucose (Glutose) 15 gm Q15M PRN BUCCAL DECREASED GLUCOSE; Start 03/30/17 at 23 :30 Hydralazine HCl (Apresoline) 10 mg Q4H PRN IV SBP>170 Last administered on 20:30; Admin Dose 10 MG; Start 03/31/17 at 18:00 Insulin Glargine (Lantus) 28 unit DAILY SC Last administered on 04/06/17 08: 01; Admin Dose 28 UNIT; Start 04/02/17 at 09:00 Phenol (Cepastat Lozenge) 1 lozenge Q4 PRN MT sore throat; Start 04/01/17 at 16 :00 Morphine Sulfate (morphine) 3 mg Q3H PRN IV PAIN; Start 04/04/17 at 13:30 Lisinopril (Zestril) 10 mg HS PO Last administered on 04/05/17t 20:30; Admin Dose 10 MG; Start 04/05/17 at 21:00 Doxazosin Mesylate (Cardura) 4 mg HS PO ; Start 04/06/17 at 21:00 Famotidine (Pepcid) 20 mg BID PO ; Start 04/06/17 at 21:00 SOFIA VAZQUEZ Apr 06, 2017 16:40
[2017-04-06] MEDS: FAMOTIDINE 20 MG TAB PO SCH (20:29)
[2017-04-06] MEDS: LISINOPRIL 10 MG TAB PO SCH (20:29)
[2017-04-06] MEDS ORDERED: LISINOPRIL 10 MG TAB PO SCH (21:00)
[2017-04-06] MEDS ORDERED: DOXAZOSIN 4 MG TAB PO SCH (21:00)
[2017-04-07 02:00] VITALS: BP 146/65; RESP 20
[2017-04-07 06:03] LABS: BASOPHILS % 0.7 % (0.0-2.0); EOSINOPHILS # 0.2 10^3/ul (0.0-0.5); EOSINOPHILS % 4.1 % (0.0-7.0); HEMATOCRIT 26.9 % (42.0-52.0); HEMOGLOBIN 8.5 g/dl (14.0-18.0); LYMPHOCYTES # 1.7 10^3/ul (0.8-2.9); LYMPHOCYTES % 28.5 % (15.0-51.0); MEAN CORPUSCULAR HEMOGLOBIN 28.7 pg (29.0-33.0); MEAN CORPUSCULAR HGB CONC 31.6 g/dl (32.0-37.0); MEAN CORPUSCULAR VOLUME 90.9 fl (82.0-101.0); MONOCYTE # 0.8 10^3/ul (0.3-0.9); MONOCYTES % 14.1 % (0.0-11.0); NEUTROPHILS % 52.3 % (39.0-77.0); PLATELET COUNT 327 10^3/UL (140-415); RED BLOOD COUNT 2.96 10^6/ul (4.70-6.10); RED CELL DISTRIBUTION WIDTH 15.1 % (11.5-14.5); WHITE BLOOD COUNT 5.8 10^3/ul (4.8-10.8)
[2017-04-07 06:31] LABS: CALCIUM 8.5 mg/dl (8.4-10.2); CREATININE 1.1 mg/dl (0.61-1.24)
[2017-04-07 07:43] VITALS: BP 139/63; RESP 20
[2017-04-07] MEDS: INSULIN ASPART [NOVOLOG] 3 ML PEN SC SCH ×2 (08:00→12:00)
[2017-04-07] MEDS: FAMOTIDINE 20 MG TAB PO SCH (08:53)
[2017-04-07] MEDS ORDERED: INSULIN GLARGINE [LANtus] 3 ML PEN SC SCH (09:00)
[2017-04-07 14:19] VITALS: BP 157/68; RESP 20
--- NOTE | 2017-04-07 15:08 | PN ---
DATE: 04/07/2017 SUBJECTIVE: No complaint, tolerating diet. No nausea, no vomiting, no fever, no chills, minimal abdominal pain, has had a bowel movement. OBJECTIVE: Awake, alert, oriented. VITAL SIGNS: Temperature 97.7, 1 episode of 99. Heart rate 70 regular, respirations 20, blood pressure 157/68, saturation 98% room air. LABORATORY DATA: WBC 5800 with 52% segmented, hemoglobin 8.5, hematocrit 26.9. Chemistry: Sodium, potassium, BUN, creatinine within normal limits. PHYSICAL EXAMINATION: HEART: Regular LUNGS: Clear. ABDOMEN: Soft. Wound incision line clean with slight redness upper part, few sveta was removed, and the wound was poked. There is no evidence of pus or fluid accumulation under skin therefore, it could be the effect of reaction to the sveta. The other staple was removed. ASSESSMENT AND PLAN: A 71-year-old gentleman status post laparotomy, resection of the splenic flexure cancer and end-to-end anastomosis. Postop the patient did very well and is quite stable and tolerating diet. Patient will be discharged today. Follow up by Dr. Buchanan. Dictated By: MARLI ESCAMILLA MD PS/NTS Conf#: [id number] DID#: [id number] CC: FARIBA BUCHANAN MD;*EndCC* MTDD
[2017-04-07] MEDS ORDERED: HYDR-906 PO (15:21)
--- NOTE | 2017-04-07 20:02 | DS ---
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 The patient was, however, arousable. The patient is a 71-year- old gentleman who underwent colonoscopy back in January 2017, which revealed sigmoid mass at 50 cm from the anus. Biopsy came back positive for adenocarcinoma well to moderately differentiated. The patient was referred to Dr. Santos and subsequently brought into the hospital today. The patient underwent exploratory laparotomy, lysis of adhesions and mobilization of splenic flexure left colon with mobilization of the splenic flexure and partial omentectomy, left colon resection and ventral hernia repair. 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 The patient was arousable. Denies any chest pain. No resting leg pain. No focal weakness. Hospital Course - Sigmoid colon cancer, status post surgery and ventral hernia repair. Pt tolerates regular diet well, pain is well controlled. - Hypertension. Continue lisinopril and hydralazine as needed for systolic blood pressure above 170. - Diabetes mellitus with hemoglobin A1 C is 7.9, continue Lantus and NovoLog per mild algorithm sliding scale. - Dyslipidemia. Home Meds Active Scripts Hydrocodone/Acetaminophen ([place] 5-325 Tablet) 1 Each Tablet, 1 EACH PO Q4 for PAIN, #30 TAB Prov:MIRZA VAZQUEZA 04/07/17 Reported Medications Exenatide Microspheres (Bydureon Pen) 2 Mg/0.65 Ml Pen.injctr, 2 MG SQ Q7D, EACH 03/30/17 Insulin Glargine,Hum.rec.anlog (Basaglar Kwikpen U-100) 100 Unit/1 Ml Insuln.pen , 23 UNIT SC DAILY 03/30/17 Metformin Hcl* (Metformin Hcl*) 1,000 Mg Tablet, 1000 MG PO WITH BREAKFAST DINNE , #30 TAB 03/30/17 Simvastatin (Simvastatin) 10 Mg Tablet, 10 MG PO QHS, #30 TAB 03/30/17 Aspirin* (Aspirin* EC) 81 Mg Tablet.dr, 81 MG PO DAILY, TAB 11/6/17 Doxazosin Mesylate* (Doxazosin Mesylate*) 4 Mg Tablet, 4 MG PO HS, TAB 03/30/17 Lisinopril* (Lisinopril*) 10 Mg Tablet, 10 MG PO QHS, #30 TAB 03/30/17 Discontinued Reported Medications Methyl Salicylate/Menthol (Menthoderm Ointment) 120 Gm Oint..gm., 120 GM TP TID 03/30/17 [Blood Pressure Meds] No Conflict Check 02/06/12 [Diabetes Meds] No Conflict Check 02/06/12 Follow-up Plan f/up with Dr Santos in 1-2 weeks. Primary Care Provider Not On Staff Doctor Time spent on discharge: > 30 minutes Pending Labs Laboratory Tests Test 04/07/17 05:25 04/07/17 07:55 04/07/17 08:55 04/07/17 12:14 White Blood Count 5.810^3/ul (4.8-10.8) Red Blood Count 2.9610^6/ul (4.70-6.10) Hemoglobin 8.5g/dl (14.0-18.0) Hematocrit 26.9% (42.0-52.0) Mean Corpuscular Volume 90.9fl (82.0-101.0) Mean Corpuscular Hemoglobin 28.7pg (29.0-33.0) Mean Corpuscular Hemoglobin Concent 31.6g/dl (32.0-37.0) Red Cell Distribution Width 15.1% (11.5-14.5) Platelet Count 63524^3/UL (140-415) Mean Platelet Volume 10.0fl (7.4-10.4) Neutrophils % 52.3% (39.0-77.0) Lymphocytes % 28.5% (15.0-51.0) Monocytes % 14.1% (0.0-11.0) Eosinophils % 4.1% (0.0-7.0) Basophils % 0.7% (0.0-2.0) Nucleated Red Blood Cells % 0.0/100WBC (0.0-0.0) Neutrophils # 3.010^3/ul (1.6-7.5) Lymphocytes # 1.710^3/ul (0.8-2.9) Monocytes # 0.810^3/ul (0.3-0.9) Eosinophils # 0.210^3/ul (0.0-0.5) Basophils # 0.010^3/ul (0.0-0.1) Nucleated Red Blood Cells # 0.010^3/ul (0.0-0.0) Sodium Level 143mmol/L (135-144) Potassium Level 4.0mmol/L (3.5-5.1) Chloride Level 107mmol/L (97-110) Carbon Dioxide Level 28mmol/L (21-31) Anion Gap 12 (8-16) Blood Urea Nitrogen 8mg/dl (7-20) Creatinine 1.10mg/dl (0.61-1.24) Glucose Level 101mg/dl (70-220) Calcium Level 8.5mg/dl (8.4-10.2) Bedside Glucose 107mg/dL (70-220) 227mg/dL (70-220) 112mg/dL (70-220) Test 04/07/17 17:16 Bedside Glucose 127mg/dL (70-220) SOFIA VAZQUEZ Apr 07, 2017 20:02
== END 2017-04-07 17:30 | disposition home or self-care (01) | DRG 331 ==
LOC: REC 08:52 → MS2 16:50
PROVIDERS: ADMIT Surgery Surgical Oncology; ATTEND Surgery Surgical Oncology
PROC: 0DTG0ZZ Resection of Left Large Intestine, Open Approach (ICD-10-PCS; principal; 2017-03-30 11:30)
DX: C18.5 Malignant neoplasm of splenic flexure (principal); E11.9 Type 2 diabetes mellitus without complications; I10 Essential (primary) hypertension; N40.0 Benign prostatic hyperplasia without lower urinary tract symptoms; E78.5 Hyperlipidemia, unspecified; K43.9 Ventral hernia without obstruction or gangrene; Z79.4 Long term (current) use of insulin
CPT/HCPCS: 80048; 80053; 81001; 82962; 83036; 83735; 84100; 85025; 85610; 85730; 87086; 88305; C9113; J0295; J0360; J0610; J0690; J1815; J2250; J2270; J2274; J2405; J2543; J2710; J3010; J3480; J7030; J7050

== ENCOUNTER 2017-04-13 15:10 | Outpatient (CLI) | payer OTHER ==
[~2017-04-13] VITALS: Ht 175.3 cm; Wt 89.1 kg
[~2017-04-13 15:10] MED LIST changes: +ASPI-664 PO; -BLOOD PRESSURE MEDS; -CEFAZOLIN 1 GM INJ ONE; -DIABETES MEDS; +DOXA4TAB3 PO; +EXEN2PEN SQ; +HYDR-906 PO; +INSU100I33 SC; +LISI10TA2 PO; +METF1000 PO; -METOPROLOL 5 MG INJ ONE; -ROCURONIUM 50 MG INJ ONE; +ZOC10 PO; -metroNIDAZOLE 500 MG/100 ML NS IVPB ONE
[2017-04-13 15:24] VITALS: Ht 175.3 cm; Wt 89.1 kg
[2017-04-13 15:25] VITALS: BP 116/55; PULSE 80; RESP 18
--- NOTE | 2017-04-13 16:07 | PN ---
Date/Time of Note Date/Time of Note DATE: 04/13/17 TIME: 16:02 Outpatient Progress Note Chief Complaint Adenocarcinoma:/Diabetes/hypertension/BPH hyperlipidemia HPI Adenocarcinoma of sigmoid colon/patient was recently diagnosed adenocarcinoma of the sigmoid colon, patient had colon surgery, no fever chill, no weakness or tiredness, no bleeding, Diabetes/no polyps or polyuria hypoglycemia, Hypertension/no headache or dizziness, no local focal weakness, BPH/no frequency urgency or suprapubic discomfort or distention, Hyperlipidemia/no xanthoma, on medication, no side effect, Review of Systems Const: No Fever, no chills, no Wt. loss, no Fatigue, normal appetite, no diaphoresis. Eyes: No pain, no discharge, no redness, no visual change, no foreign body. ENT: No pain, no bleeding, no congestion, no sore throat, no dysphagia, no discharge or rhinitis. Lymph: No adenopathy, no tender nodes, no lymphedema. Resp: No SOB, no cough, no sputum, no wheezing, no chest pain. CV: No chest pain, no palpitaions, no PASCUAL, no PND, no edema. GI: Normal appetite, no pain, no nausea, no vomiting, no diarrhea, no blood, no constipation. Adenocarcinoma of sigmoid colon, patient had surgery, scar of previous surgery, : No frequency, no urgency, no dysuria, no hematuria, no flank pain, no discharge, no bleeding. Musc: no back pain, no neck pain, no knee pain, no restricted ROM. Skin: No rash, no skin lesions, no erythema, no laceration, no bruising, no pruritus. Neuro: No VALLEJO, no dizziness, no syncope, no seizure, no focal-weakness. Endo: No polyuria, no polydypsia, no dry-skin, no temp-intolerance. Psych: No hallucinations, no depression, no anxiety, no suicidal ideation. Ext: No edema, no pain, no ulcer, no weakness. Physical Exam Vital Signs Date Time Temp Pulse Resp B/P Pulse Ox O2 Delivery O2 Flow Rate FiO2 04/13/17 15:25 97.4 80 18 116/55 95 Room Air General Appearance: A 71 year-old male who appears well-developed, well- nourished, in no acute distress. HEENT: Head normocephalic, atraumatic. Pupils equal, round, reactive to light and accommodate. Sclerae are no jaundice. Nasal turbinates pink without erythema or nasal discharge. Mucous membranes pink and moist without lesions. Oropharynx clear without any exudate or discharge. NECK: Supple. Trachea midline, No thyromegaly, No cervical lymphadenopathy, No mass, No carotid bruits, No JVD, Carotid pulses 2+ bilaterally. PULMONARY: Clear to auscultaion bilaterally, No retractions, Chest expansion symmetric bilaterally, no rales, no ronchi, no dulness on percussion. CARDIAC: Normal SI and S2, Regular rate and rythm, no murmur, gallop, or rub. GASTROINTESTINAL: Abdomen is soft, minimal-t discomfort,, Non Rigid, No distention, Positive bowel sounds x4 quadrants, Liver normal. Scar of previous surgery, SKIN: Warm, dry, no rash, no bruise, no echmosis. EXTREMITIES: Bilateral lower extremities normal, no edema, no phlabitus, pulse palpable, no contracture. MUSCULOSKELETAL: Spine Normal, Non-tender, Normal range of motion, No swelling, no deformity, no clubbing, or cyanosis, the patient has no edema to bilateral lower extremities, dorsalis pedis pulses palpable bilaterally. NEUROLOGIC: The patient is awake, alert, oriented, responding to yes/no questions appropriately, moving all extremities, cranial nerve intact, normal strenght, normal power, normal coordination, normal gait. Allergies Coded Allergies: No Known Allergy (Unverified , 02/06/17) PMH Diabetes/hypertension/BPH/hyperlipidemia/adenocarcinoma of sigmoid colon Surgery for adenocarcinoma sigmoid colon, Social Hx No smoking no drinking, Family Hx Noncontributory, Assessment/Plan Impression Adenocarcinoma of sigmoid colon status post surgery Diabetes Hypertension BPH Hyperlipidemia Plan Patient education done about his condition and the prognosis, Patient to follow with the surgery tomorrow, Patient to follow with the primary care physician, discussed with the patient to control her blood pressure blood sugar and monitor blood count, Patient has all the medication, does not need any refill at present, patient slight poor appetite, increase activity slowly, Medications Home Meds Active Scripts Hydrocodone/Acetaminophen ([place] 5-325 Tablet) 1 Each Tablet, 1 EACH PO Q4 for PAIN, #30 TAB Prov:SOFIA VAZQUEZ 04/07/17 Reported Medications Exenatide Microspheres (Bydureon Pen) 2 Mg/0.65 Ml Pen.injctr, 2 MG SQ Q7D, EACH 03/30/17 Insulin Glargine,Hum.rec.anlog (Luisaglar [place] U-100) 100 Unit/1 Ml Insuln.pen , 23 UNIT SC DAILY 03/30/17 Metformin Hcl* (Metformin Hcl*) 1,000 Mg Tablet, 1000 MG PO WITH BREAKFAST DINNE , #30 TAB 03/30/17 Simvastatin (Simvastatin) 10 Mg Tablet, 10 MG PO QHS, #30 TAB 03/30/17 Aspirin* (Aspirin* EC) 81 Mg Tablet.dr, 81 MG PO DAILY, TAB 03/30/17 Doxazosin Mesylate* (Doxazosin Mesylate*) 4 Mg Tablet, 4 MG PO HS, TAB 03/30/17 Lisinopril* (Lisinopril*) 10 Mg Tablet, 10 MG PO QHS, #30 TAB 03/30/17 Discontinued Reported Medications Methyl Salicylate/Menthol (Menthoderm Ointment) 120 Gm Oint..gm., 120 GM TP TID 03/30/17 [Blood Pressure Meds] No Conflict Check 02/06/12 [Diabetes Meds] No Conflict Check 02/06/12 MIGUEL ADKISN MD Apr 13, 2017 16:07
== END 2017-04-13 16:40 | disposition home or self-care (01) ==
LOC: DCC 15:10
PROVIDERS: ATTEND Internal Medicine
DX: C18.7 Malignant neoplasm of sigmoid colon (principal); E11.9 Type 2 diabetes mellitus without complications; I10 Essential (primary) hypertension; N40.0 Benign prostatic hyperplasia without lower urinary tract symptoms; E78.5 Hyperlipidemia, unspecified; Z79.84 Long term (current) use of oral hypoglycemic drugs; Z79.82 Long term (current) use of aspirin; Z79.4 Long term (current) use of insulin
CPT/HCPCS: G0463

== ENCOUNTER 2017-04-28 14:15 | Outpatient (CLI) | payer OTHER ==
[~2017-04-28] VITALS: Ht 175.3 cm; Wt 90.5 kg
[2017-04-28 14:40] VITALS: Ht 175.3 cm; Wt 90.5 kg
[2017-04-28 14:43] VITALS: BP 129/60; PULSE 70; RESP 18
--- NOTE | 2017-04-28 15:10 | PN ---
Date/Time of Note Date/Time of Note DATE: 04/28/17 TIME: 15:05 Outpatient Progress Note Chief Complaint Adenocarcinoma/diabetes/hypertension/BPH HPI Adenocarcinoma/patient had recent surgery for adenocarcinoma, incision healing well, patient has minimal discomfort lateral to the incision, Diabetes/no polydipsia polyuria hypoglycemia, blood sugar control, Hypertension/no headache or dizziness, no chest pain, BPH/no frequency urgency, no suprapubic discomfort or distention, Review of Systems Const: No Fever, no chills, no Wt. loss, no Fatigue, normal appetite, no diaphoresis. Eyes: No pain, no discharge, no redness, no visual change, no foreign body. ENT: No pain, no bleeding, no congestion, no sore throat, no dysphagia, no discharge or rhinitis. Lymph: No adenopathy, no tender nodes, no lymphedema. Resp: No SOB, no cough, no sputum, no wheezing, no chest pain. CV: No chest pain, no palpitaions, no PASCUAL, no PND, no edema. GI: Normal appetite, minimal abdominal pain, slightly lateral to incision on left side, no nausea, no vomiting, no diarrhea, no blood, no constipation. : No frequency, no urgency, no dysuria, no hematuria, no flank pain, no discharge, no bleeding. Musc: Delete no back pain, no neck pain, no knee pain, no restricted ROM. Skin: No rash, no skin lesions, no erythema, no laceration, no bruising, no pruritus. Neuro: No VALLEJO, no dizziness, no syncope, no seizure, no focal-weakness. Endo: No polyuria, no polydypsia, no dry-skin, no temp-intolerance. Psych: No hallucinations, no depression, no anxiety, no suicidal ideation. Ext: No edema, no pain, no ulcer, no weakness. Physical Exam Vital Signs Date Time Temp Pulse Resp B/P Pulse Ox O2 Delivery O2 Flow Rate FiO2 04/28/17 14:43 98.5 70 18 129/60 95 Room Air General Appearance: A 71 year-old male who appears well-developed, well- nourished, in no acute distress. HEENT: Head normocephalic, atraumatic. Pupils equal, round, reactive to light and accommodate. Sclerae are no jaundice. Nasal turbinates pink without erythema or nasal discharge. Mucous membranes pink and moist without lesions. Oropharynx clear without any exudate or discharge. NECK: Supple. Trachea midline, No thyromegaly, No cervical lymphadenopathy, No mass, No carotid bruits, No JVD, Carotid pulses 2+ bilaterally. PULMONARY: Clear to auscultaion bilaterally, No retractions, Chest expansion symmetric bilaterally, no rales, no ronchi, no dulness on percussion. CARDIAC: Normal SI and S2, Regular rate and rythm, no murmur, gallop, or rub. GASTROINTESTINAL: Abdomen is soft, minimal discomfort to the lateral side of the incision slightly lateral to umbilicus, about 2-3 cm laterally, wound healing well, no tenderness around the wound or no discharge,, Non Rigid, No distention, Positive bowel sounds x4 quadrants, Liver normal. SKIN: Warm, dry, no rash, no bruise, no echmosis. EXTREMITIES: Bilateral lower extremities normal, no edema, no phlabitus, pulse palpable, no contracture. MUSCULOSKELETAL: Spine Normal, Non-tender, Normal range of motion, No swelling, no deformity, no clubbing, or cyanosis, the patient has no edema to bilateral lower extremities, dorsalis pedis pulses palpable bilaterally. NEUROLOGIC: The patient is awake, alert, oriented, responding to yes/no questions appropriately, moving all extremities, cranial nerve intact, normal strenght, normal power, normal coordination, normal gait. Allergies Coded Allergies: No Known Allergy (Unverified , 02/06/17) PMH No change Social Hx No change Family Hx No change Assessment/Plan Impression Adenocarcinoma/diabetes/hypertension/BPH Abdominal discomfort Plan Patient education done about his condition, patient to follow with primary care and surgery, Patient has minimal discomfort lateral to the incision, no cellulitis, could be early hernia, discussed with the patient, patient to follow with primary care and surgery, Event patient has any fever to let the primary care physician know or surgery no Patient has all the medication, patient blood sugar under control, will monitor closely, Medications Home Meds Reported Medications Exenatide Microspheres (Bydureon Pen) 2 Mg/0.65 Ml Pen.injctr, 2 MG SQ Q7D, EACH 03/30/17 Insulin Glargine,Hum.rec.anlog (Luisaglar [place]pen U-100) 100 Unit/1 Ml Insuln.pen , 23 UNIT SC DAILY 03/30/17 Metformin Hcl* (Metformin Hcl*) 1,000 Mg Tablet, 1000 MG PO WITH BREAKFAST DINNE , #30 TAB 03/30/17 Simvastatin (Simvastatin) 10 Mg Tablet, 10 MG PO QHS, #30 TAB 03/30/17 Aspirin* (Aspirin* EC) 81 Mg Tablet.dr, 81 MG PO DAILY, TAB 03/30/17 Doxazosin Mesylate* (Doxazosin Mesylate*) 4 Mg Tablet, 4 MG PO HS, TAB 03/30/17 Lisinopril* (Lisinopril*) 10 Mg Tablet, 10 MG PO QHS, #30 TAB 03/30/17 Discontinued Scripts Hydrocodone/Acetaminophen ([place] 5-325 Tablet) 1 Each Tablet, 1 EACH PO Q4 for PAIN, #30 TAB Prov:SOFIA VAZQUEZ 04/07/17 MIGUEL ADKINS MD Apr 28, 2017 15:10
== END 2017-04-28 16:37 | disposition home or self-care (01) ==
LOC: DCC 14:15
PROVIDERS: ATTEND Internal Medicine
DX: N40.0 Benign prostatic hyperplasia without lower urinary tract symptoms (principal); R10.9 Unspecified abdominal pain; E11.9 Type 2 diabetes mellitus without complications; I10 Essential (primary) hypertension; Z85.89 Personal history of malignant neoplasm of other organs and systems; Z79.82 Long term (current) use of aspirin; Z79.4 Long term (current) use of insulin
CPT/HCPCS: G0463